=== PATIENT | male | born 1955 | race Caucasian/White ===

== ENCOUNTER 2016-07-26 19:11 | Emergency (ER) | payer MEDICAID ==
[2016-07-26] MEDS ORDERED: LORazepam 0.5 MG Tab PO ONE (19:29)
--- NOTE | 2016-07-26 19:42 | EDM.PDOC ---
ED HPI NEURO - General Chief Complaint: Behavioral/Psych Stated Complaint: CHEST PAIN Time Seen by Provider: 07/26/16 19:34 Source: Reports: Patient, Family History Limitations: Reports: No limitations - History of Present Illness INITIAL COMMENTS - FREE TEXT/NARRATIVE: pt developed tightness in his chest. He was also very emotional and upset regarding his up coming work schedule for the summer. 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 Timing/Duration: Reports: Hour(s):, Getting worse Quality (Neuro Complaint): Reports: tingling, other (pt is quite emotional. ) Severity: moderate Associated symptoms: Reports: chest pain, other (pt is crying and feels like huis chest is tight. He did take 4 baby asas at home. He has had a previous stent. ) - Related Data Allergies/ADRs: Allergies Allergy/AdvReac Type Severity Reaction Status Date / Time bee pollen Allergy Unknown Cannot Verified 07/26/16 19:15 Remember morphine Allergy Unknown Cannot Verified 07/26/16 19:15 Remember oxycodone Allergy Unknown Cannot Verified 07/26/16 19:15 Remember codeine AdvReac Unknown Verified 07/26/16 19:15 Home Meds: Home Meds Fenofibrate 160 mg PO DAILY 08/08/13 [History] Metoprolol Tartrate 25 mg PO BID 08/08/13 [History] Aspirin [Low Dose Aspirin EC] 81 mg PO DAILY 06/18/15 [History] LORazepam 0.5 mg PO Q6HR PRN 06/18/15 [History] [place]-3/DHA/Epa/Fish Oil [Fish Oil 1,000 mg Softgel] 360 mg PO BID 06/18/15 [ History] Multivitamin [Multiple Vitamins] 1 tab PO DAILY 06/17/16 [History] Naproxen Sodium [Aleve] 440 mg PO BID PRN 06/17/16 [History] amLODIPine [Norvasc] 5 mg PO DAILY 06/17/16 [History] Aspirin [Ecotrin] 325 mg PO BID #60 tab.ec 06/23/16 [Rx] Ondansetron [Zofran ODT] 4 mg PO Q6H PRN #12 tab.dis 06/23/16 [Rx] traMADol [Ultram] 100 mg PO Q6H PRN #120 tablet 06/23/16 [Rx] Past Medical History HEENT History: Reports: Cataract Cardiovascular History: Reports: High cholesterol, Hypertension, [place], SOB on exertion, Stents Gastrointestinal History: Reports: GERD, Hiatal hernia Musculoskeletal History: Reports: Arthritis Endocrine/Metabolic History: Reports: Obesity/BMI 30+ - Past Surgical History HEENT Surgical History: Reports: Cataract surgery Cardiovascular Surgical History: Reports: Coronary artery stent Endocrine Surgical History: Reports: None Musculoskeletal Surgical History: Reports: Arthroscopic knee, Shoulder surgery, Other (see below) Other Musculoskeletal Surgeries/Procedures:: left ankle Social & Family History - Family History Cardiac: Reports: Bypass, Heart failure Endocrine/Metabolic: Reports: IDDM Oncologic: Reports: Bladder, Colon, Lung, Prostate, Other (see below) Other Oncologic Family History: throat cancer - Tobacco Use Smoking Status *Q: Current Every Day Smoker Years of Tobacco use: 50 Packs/Tins Daily: 1 Used Tobacco, but Quit: No Second Hand Smoke Exposure: Yes - Caffeine Use Caffeine Use: Reports: Coffee - Alcohol Use Days Per Week of Alcohol Use: 0 - Recreational Drug Use Recreational Drug Use: No ED ROS GENERAL - Review of Systems Review Of Systems: See Below Constitutional: Reports: no symptoms HEENT: Reports: No symptoms Respiratory: Reports: no symptoms Cardiovascular: Reports: Other ( chest tight and he feels tingly. He is upset about not working. He had a total knee done 5 weeks ago and is in PT. ) Endocrine: Reports: no symptoms GI/Abdominal: Reports: No symptoms : Reports: no symptoms Musculoskeletal: Reports: no symptoms Skin: Reports: no symptoms Neurological: Reports: no symptoms Psychiatric: Reports: Anxiety, Other (crying) ED EXAM, NEURO - Physical Exam Exam: See Below Text/Narrative:: pt arrived with some chest pressure and feeling very anxious. 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 He was obviously tearful. Exam Limited By: No limitations General Appearance: alert, anxious Ears: normal TMs Nose: normal inspection Throat/Mouth: Normal inspection Neck: normal inspection Respiratory/Chest: no respiratory distress Cardiovascular: regular rate, rhythm GI/Abdominal: soft, non tender (Male) Exam: Deferred Rectal (Males) Exam: Deferred Neurological: alert, oriented x 3 Back Exam: normal inspection Extremities: normal inspection Psychiatric: anxious, tearful (pt was obviouly tense and upset. ), other Course - Vital Signs Last Recorded V/S: Last Vital Signs Temp 36.6 C 07/26/16 19:46 Pulse 85 07/26/16 19:46 Resp 24 H 07/26/16 19:46 BP 159/90 H 07/26/16 19:46 Pulse Ox 98 07/26/16 19:46 - Orders/Labs/Meds Orders: Active Orders 24 hr Category Date Time Status EKG Documentation Completion [RC] ASDIRECTED Care 07/26/16 19:33 Active EKG 12 Lead [EK] Routine Ther 07/26/16 19:33 Ordered Labs: Laboratory Tests 07/26/16 07/26/16 07/26/16 Range/Units 19:48 19:48 19:48 WBC 5.6 (4.5-11.0) K/uL RBC 4.37 (4.30-5.90) M/uL Hgb 13.1 (12.0-15.0) g/dL Hct 38.9 L (40.0-54.0) % MCV 89 (80-98) fL MCH 30 (27-31) pg MCHC 34 (32-36) % Plt Count 403 H (150-400) K/uL Neut % (Auto) 51 (36-66) % Lymph % (Auto) 38 (24-44) % [place] % (Auto) 9 H (2-6) % Eos % (Auto) 2 (2-4) % Baso % (Auto) 1 (0-1) % Sodium 146 (140-148) mmol/L Potassium 3.4 L (3.6-5.2) mmol/L Chloride 107 (100-108) mmol/L Carbon Dioxide 26 (21-32) mmol/L Anion Gap 16.4 H (5.0-14.0) mmol/L BUN 20 H (7-18) mg/dL Creatinine 1.3 (0.8-1.3) mg/dL Est Cr Clr Drug Dosing 57.20 mL/min Estimated GFR (MDRD) 57 L (>60) Glucose 118 H (74-106) mg/dL Calcium 8.6 (8.5-10.1) mg/dL Total Bilirubin 0.2 (0.2-1.0) mg/dL AST 19 (15-37) U/L ALT 20 (12-78) U/L Alkaline Phosphatase 34 L (46-116) U/L Creatine Kinase 66 (39-308) U/L Troponin I < 0.017 (0.000-0.056) ng/mL Total Protein 7.2 (6.4-8.2) g/dL Albumin 4.2 (3.4-5.0) g/dL Globulin 3.0 (2.3-3.5) g/dL Albumin/Globulin Ratio 1.4 (1.2-2.2) Meds: Medications Discontinued Medications Generic Name Dose Route Start Last Admin Trade Name Freq PRN Reason Stop Dose Admin Lorazepam 0.5 mg 07/26/16 19:29 07/26/16 19:34 Ativan PO 07/26/16 19:30 0.5 mg ONETIME ONE Administration - Re-Assessments/Exams Free Text/Narrative Re-Assessment/Exam: 07/26/16 20:54 pt was given ativan and felt much better. His cardiac enzymes were normal. His creatnine is slightly borderline. His EkG did not show acute changes. Departure - Departure Time of Disposition: 20:55 Disposition: Home, Self-Care 01 Condition: fair Clinical Impression: Anxiety Forms: ED Department Discharge Care Plan Goals: ativan .5 q8h prn for anxiety, use only as needed. rtc if further chest pain. cont other meds. - My Orders Last 24 Hours: My Active Orders 07/26/16 19:33 EKG Documentation Completion [RC] ASDIRECTED EKG 12 Lead [EK] Routine - Assessment/Plan Last 24 Hours: My Active Orders 07/26/16 19:33 EKG Documentation Completion [RC] ASDIRECTED EKG 12 Lead [EK] Routine
[2016-07-26 21:18] VITALS: BP 147/68
== END 2016-07-26 21:11 | disposition home or self-care (01) ==
LOC: JP.ED 19:11
DX: F41.9 Anxiety disorder, unspecified (principal); I25.2 Old myocardial infarction; I10 Essential (primary) hypertension; E78.00 Pure hypercholesterolemia, unspecified; K21.9 Gastro-esophageal reflux disease without esophagitis; F17.210 Nicotine dependence, cigarettes, uncomplicated; E66.9 Obesity, unspecified; Z68.31 Body mass index [BMI] 31.0-31.9, adult; Z98.49 Cataract extraction status, unspecified eye; Z95.5 Presence of coronary angioplasty implant and graft; Z98.890 Other specified postprocedural states; Z79.82 Long term (current) use of aspirin; Z79.899 Other long term (current) drug therapy; Z88.5 Allergy status to narcotic agent; Z91.030 Bee allergy status
CPT/HCPCS: 36415; 80053; 82550; 84484; 85025; 93005; 99285; A9270

== ENCOUNTER 2018-10-13 17:25 | Emergency (ER) | payer MEDICAID ==
[2018-10-13] MEDS ORDERED: Tetracaine HCl/PF 0.5% 4 ML Bottle EYELF ONE (20:38)
[2018-10-13 20:40] VITALS: BP 158/78
--- NOTE | 2018-10-13 20:47 | EDM.PDOC ---
ED HPI GENERAL MEDICAL PROBLEM - General Chief Complaint: Eye Problems Stated Complaint: HAS SOMETHING IN LEFT EYE WHILE MOWING Time Seen by Provider: 10/13/18 20:35 Source of Information: Reports: Patient History Limitations: Reports: No Limitations - History of Present Illness INITIAL COMMENTS - FREE TEXT/NARRATIVE: 63-year-old male complains of a foreign body in his left eye that occurred after he was mowing his lawn today. His vision is unaffected and he has not had any discharge. Has some pain with movement and blinking of the eye with painful/ 10. He does not work contact lenses or glasses. 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 Left Eye Pain Score (Numeric/FACES): 8 - Related Data Allergies Allergy/AdvReac Type Severity Reaction Status Date / Time bee pollen Allergy Unknown Cannot Verified 10/13/18 20:30 Remember morphine Allergy Unknown Cannot Verified 10/13/18 20:30 Remember oxycodone Allergy Unknown Cannot Verified 10/13/18 20:30 Remember codeine AdvReac Unknown Verified 10/13/18 20:30 Home Meds: Home Meds Fenofibrate 160 mg PO DAILY 08/08/13 [History] Metoprolol Tartrate 25 mg PO BID 08/08/13 [History] Aspirin [Low Dose Aspirin EC] 81 mg PO DAILY 06/18/15 [History] LORazepam 0.5 mg PO Q6HR PRN 06/18/15 [History] [place]-3/DHA/Epa/Fish Oil [Fish Oil 1,000 mg Softgel] 360 mg PO BID 06/18/15 [ History] Multivitamin [Multiple Vitamins] 1 tab PO DAILY 06/17/16 [History] Naproxen Sodium [Aleve] 440 mg PO BID PRN 06/17/16 [History] amLODIPine [Norvasc] 5 mg PO DAILY 06/17/16 [History] Past Medical History HEENT History: Reports: Cataract Cardiovascular History: Reports: High Cholesterol, Hypertension, [place], SOB on Exertion, Stents Gastrointestinal History: Reports: GERD, Hiatal Hernia Musculoskeletal History: Reports: Other (See Below) Other Musculoskeletal History: left ankle pain Endocrine/Metabolic History: Reports: Obesity/BMI 30+ - Infectious Disease History Infectious Disease History: Reports: Chicken Pox - Past Surgical History HEENT Surgical History: Reports: Cataract Surgery Cardiovascular Surgical History: Reports: Coronary Artery Stent GI Surgical History: Reports: Hernia, Inguinal Endocrine Surgical History: Reports: None Musculoskeletal Surgical History: Reports: Arthroscopic Knee, Shoulder Surgery, Other (See Below) Social & Family History - Family History Cardiac: Reports: Bypass, Heart Failure Endocrine/Metabolic: Reports: IDDM Oncologic: Reports: Bladder, Colon, Lung, Prostate, Other (See Below) Other Oncologic Family History: throat cancer - Tobacco Use Smoking Status *Q: Unknown Ever Smoked - Caffeine Use Caffeine Use: Reports: Coffee - Recreational Drug Use Recreational Drug Use: No ED ROS GENERAL - Review of Systems Review Of Systems: See Below Constitutional: Reports: No Symptoms HEENT: Reports: No Symptoms Respiratory: Reports: No Symptoms Cardiovascular: Reports: No Symptoms ED EXAM GENERAL W FULL EYE - Physical Exam Exam: See Below Exam Limited By: No Limitations General Appearance: Alert, No Apparent Distress Eyelids: Bilateral: Normal Appearance, Edema Cornea Exam: Left: Foreign Body Pupillary Size: Bilateral: 3 mm Pupillary Reaction: Bilateral: Brisk Anterior Chamber: Bilateral: Normal Appearance Nose: Normal Inspection Throat/Mouth: Normal Inspection Course - Vital Signs Last Recorded V/S: Last Vital Signs Temp 36.4 C 10/13/18 20:39 Pulse 55 L 10/13/18 20:39 Resp 12 10/13/18 20:39 BP 158/78 H 10/13/18 20:39 Pulse Ox 96 10/13/18 20:39 - Orders/Labs/Meds Meds: Medications Discontinued Medications Generic Name Dose Route Start Last Admin Trade Name Freq PRN Reason Stop Dose Admin Tetracaine HCl 0.2 ml 10/13/18 20:38 10/13/18 20:42 Tetracaine 0.5% Steri-Unit Betty EYELF 10/13/18 20:39 0.2 drop ASDIRECTED ONE Administration Departure - Departure Time of Disposition: 20:55 Disposition: Home, Self-Care 01 Condition: Good Clinical Impression: Acute foreign body of cornea - Discharge Information *PRESCRIPTION DRUG MONITORING PROGRAM REVIEWED*: No *COPY OF PRESCRIPTION DRUG MONITORING REPORT IN PATIENT YFN: No Instructions: Eye Foreign Body, [id number] Referrals: PCP,None [Primary Care Provider] - Forms: ED Department Discharge Additional Instructions: [id number] analgesics and lubrication drops as needed for pain. Care Plan Goals: Follow-up if there is development of discharge or worsening of symptoms after 2 days. - Problem List & Annotations (1) Acute foreign body of cornea SNOMED Code(s): 00055249 Code(s): T15.00XA - FOREIGN BODY IN CORNEA, UNSPECIFIED EYE, INITIAL ENCOUNTER Status: Acute
== END 2018-10-13 20:59 | disposition home or self-care (01) ==
LOC: JP.ED 17:25
DX: T15.02XA Foreign body in cornea, left eye, initial encounter (principal); E78.00 Pure hypercholesterolemia, unspecified; I10 Essential (primary) hypertension; I25.2 Old myocardial infarction; Z79.82 Long term (current) use of aspirin
CPT/HCPCS: 99283

== ENCOUNTER 2019-01-09 10:45 | Emergency (ER) | payer MEDICAID ==
[2019-01-09 11:11] VITALS: BP 177/98; PULSE 76
--- NOTE | 2019-01-09 11:32 | EDM.PDOC ---
ED HPI GENERAL MEDICAL PROBLEM - General Chief Complaint: Bite:Animal, Insect Stated Complaint: BEE STINGS Time Seen by Provider: 01/09/19 11:10 Source of Information: Reports: Patient History Limitations: Reports: No Limitations - History of Present Illness INITIAL COMMENTS - FREE TEXT/NARRATIVE: 63-year-old male got stung several times by bees within the last hour, his gave him Benadryl and he came in for evaluation because he had a significant systemic reaction 30 years ago. He has some itching of the extremities where he was stung but no other symptoms. No shortness of breath, no oral edema or swelling. Onset: Sudden Duration: Hour(s): (Within the last hour) Associated Symptoms: Denies: Confusion, Chest Pain, Cough, Diaphoresis, Loss of Appetite, Malaise, Nausea/Vomiting, Shortness of Breath, Weakness - Related Data Allergies Allergy/AdvReac Type Severity Reaction Status Date / Time bee pollen Allergy Unknown Cannot Verified 10/13/18 20:30 Remember morphine Allergy Unknown Cannot Verified 10/13/18 20:30 Remember oxycodone Allergy Unknown Cannot Verified 10/13/18 20:30 Remember codeine AdvReac Unknown Verified 10/13/18 20:30 Home Meds: Home Meds Fenofibrate 160 mg PO DAILY 08/08/13 [History] Metoprolol Tartrate 25 mg PO BID 08/08/13 [History] Aspirin [Low Dose Aspirin EC] 81 mg PO DAILY 06/18/15 [History] LORazepam 0.5 mg PO Q6HR PRN 06/18/15 [History] [place]-3/DHA/Epa/Fish Oil [Fish Oil 1,000 mg Softgel] 360 mg PO BID 06/18/15 [ History] Multivitamin [Multiple Vitamins] 1 tab PO DAILY 06/17/16 [History] Naproxen Sodium [Aleve] 440 mg PO BID PRN 06/17/16 [History] amLODIPine [Norvasc] 5 mg PO DAILY 06/17/16 [History] Past Medical History HEENT History: Reports: Cataract Cardiovascular History: Reports: High Cholesterol, Hypertension, [place], SOB on Exertion, Stents Gastrointestinal History: Reports: GERD, Hiatal Hernia Musculoskeletal History: Reports: Other (See Below) Other Musculoskeletal History: left ankle pain Endocrine/Metabolic History: Reports: Obesity/BMI 30+ - Infectious Disease History Infectious Disease History: Reports: Chicken Pox - Past Surgical History HEENT Surgical History: Reports: Cataract Surgery Cardiovascular Surgical History: Reports: Coronary Artery Stent GI Surgical History: Reports: Hernia, Inguinal Endocrine Surgical History: Reports: None Musculoskeletal Surgical History: Reports: Arthroscopic Knee, Shoulder Surgery, Other (See Below) Social & Family History - Family History Cardiac: Reports: Bypass, Heart Failure Endocrine/Metabolic: Reports: IDDM Oncologic: Reports: Bladder, Colon, Lung, Prostate, Other (See Below) Other Oncologic Family History: throat cancer - Tobacco Use Smoking Status *Q: Current Every Day Smoker Years of Tobacco use: 50 Packs/Tins Daily: 1 - Caffeine Use Caffeine Use: Reports: Coffee - Recreational Drug Use Recreational Drug Use: No ED ROS GENERAL - Review of Systems Review Of Systems: See Below Constitutional: Denies: Fever, Chills HEENT: Reports: No Symptoms Respiratory: Denies: Shortness of Breath Cardiovascular: Denies: Chest Pain GI/Abdominal: Denies: Nausea, Vomiting Skin: Reports: Other (Some mild erythema around the sting sites, no systemic rash or hives) Neurological: Reports: No Symptoms ED EXAM, ANIMAL BITE - Physical Exam Exam: See Below Exam Limited By: No Limitations General Appearance: Alert, No Apparent Distress Eye Exam: Bilateral Eye: Normal Inspection Throat/Mouth: Normal Inspection Head: Atraumatic Respiratory/Chest: No Respiratory Distress, Lungs Clear Extremities: Other (Some minimal erythema on the right arm and both lower extremities were he was stung, no significant swelling, bruising or hives, no peripheral edema) Neurological: Alert, Oriented Course - Vital Signs Last Recorded V/S: Last Vital Signs Temp 96.8 F 01/09/19 11:03 Pulse 76 01/09/19 11:03 Resp 19 01/09/19 11:03 BP 177/98 H 01/09/19 11:03 Pulse Ox 94 L 01/09/19 11:03 - Re-Assessments/Exams Free Text/Narrative Re-Assessment/Exam: 01/09/19 11:32 Patient was observed for an additional hour and developed no further symptoms. No further treatment was given. Departure - Departure Time of Disposition: 11:38 Disposition: Home, Self-Care 01 Clinical Impression: Accidental bee sting - Discharge Information Instructions: Bee, Wasp, or Hornet Sting, Adult Referrals: PCP,None [Primary Care Provider] - Forms: ED Department Discharge Care Plan Goals: Continue ice to sting areas, ibuprofen may help and increase activity as tolerated. Return if concerns such as shortness of breath, widespread rash or tongue swelling.
== END 2019-01-09 11:39 | disposition home or self-care (01) ==
LOC: JP.ED 10:45
DX: T63.441A Toxic effect of venom of bees, accidental (unintentional), initial encounter (principal); I10 Essential (primary) hypertension; I25.2 Old myocardial infarction; E66.9 Obesity, unspecified; Z68.33 Body mass index [BMI] 33.0-33.9, adult; F17.210 Nicotine dependence, cigarettes, uncomplicated; E78.00 Pure hypercholesterolemia, unspecified; Z88.5 Allergy status to narcotic agent; Z91.030 Bee allergy status; Z79.82 Long term (current) use of aspirin; Z79.899 Other long term (current) drug therapy
CPT/HCPCS: 99282

== ENCOUNTER 2020-01-07 07:38 | Inpatient (IN) | payer MEDICAID ==
--- NOTE | 2020-01-07 08:02 | EDM.PDOC ---
ED HPI GENERAL MEDICAL PROBLEM - General Chief Complaint: Lower Extremity Injury/Pain Stated Complaint: LEFT KNEE PAIN, FEVER Time Seen by Provider: 01/07/20 08:01 Source of Information: Reports: Patient History Limitations: Reports: No Limitations - History of Present Illness INITIAL COMMENTS - FREE TEXT/NARRATIVE: Sudden onset of left knee pain at 6 AM. He initially was able to bear weight but pain and swelling became gradually worse and he has been unable to bear weight. Denies fevers or chills. Denies tick bites. No rash. No trauma. Significant past history of left knee surgery. Patient states his pain actually is more in his posterior calf and goes behind his knee. He denies any prolonged immobilization but does have a significant history of cancer (prostate). Onset: Sudden Onset Date: 01/06/20 Onset Time: 06:00 Duration: Getting Worse Location: Reports: Lower Extremity, Left Quality: Reports: Sharp, Throbbing Severity: Severe Improves with: Reports: Immobilization, Rest Worsens with: Reports: Movement Associated Symptoms: Reports: No Other Symptoms Treatments FUR SEWER: Reports: Acetaminophen Left Knee Pain Score (Numeric/FACES): 8 - Related Data Allergies Allergy/AdvReac Type Severity Reaction Status Date / Time bee pollen Allergy Unknown Cannot Verified 01/07/20 08:00 Remember morphine Allergy Unknown Cannot Verified 01/07/20 08:00 Remember oxycodone Allergy Unknown Cannot Verified 01/07/20 08:00 Remember codeine AdvReac Unknown Verified 01/07/20 08:00 Home Meds: Home Meds Fenofibrate 160 mg PO DAILY 08/08/13 [History] Aspirin [Low Dose Aspirin EC] 81 mg PO DAILY 06/18/15 [History] LORazepam 0.5 mg PO Q6HR PRN 06/18/15 [History] Multivitamin [Multiple Vitamins] 1 tab PO DAILY 06/17/16 [History] amLODIPine [Norvasc] 5 mg PO DAILY 06/17/16 [History] Acetaminophen/Diphenhydramine [Tylenol Pm Ex-Strength Caplet] 2 each PO Q4HR 01/07/20 [History] Past Medical History HEENT History: Reports: Cataract Cardiovascular History: Reports: High Cholesterol, Hypertension, [place], SOB on Exertion, Stents Gastrointestinal History: Reports: GERD, Hiatal Hernia Genitourinary History: Reports: Other (See Below) (proState cancer, S/P prostatectomy) Musculoskeletal History: Reports: Other (See Below) Other Musculoskeletal History: left ankle pain Endocrine/Metabolic History: Reports: Obesity/BMI 30+ - Infectious Disease History Infectious Disease History: Reports: Chicken Pox - Past Surgical History HEENT Surgical History: Reports: Cataract Surgery Cardiovascular Surgical History: Reports: Coronary Artery Stent GI Surgical History: Reports: Hernia, Inguinal Male Surgical History: Reports: Prostatectomy Endocrine Surgical History: Reports: None Musculoskeletal Surgical History: Reports: Arthroscopic Knee, Shoulder Surgery, Other (See Below) Social & Family History - Family History Cardiac: Reports: Bypass, Heart Failure Endocrine/Metabolic: Reports: IDDM Oncologic: Reports: Bladder, Colon, Lung, Prostate, Other (See Below) Other Oncologic Family History: throat cancer - Caffeine Use Caffeine Use: Reports: Coffee Review of Systems - Review of Systems Review Of Systems: See Below Constitutional: Reports: Fever Eyes: Reports: No Symptoms Ears: Reports: No Symptoms Nose: Reports: No Symptoms. Denies: Congestion, Purulent Discharge Mouth/Throat: Reports: No Symptoms Respiratory: Denies: Shortness of Breath, Wheezing, Cough Cardiovascular: Denies: Chest Pain GI/Abdominal: Denies: Abdominal Pain Musculoskeletal: Reports: Joint Pain Skin: Denies: Rash Neurological: Reports: No Symptoms Psychiatric: Reports: No Symptoms ED EXAM, GENERAL - Physical Exam Exam: See Below Exam Limited By: No Limitations General Appearance: Alert Ears: Normal External Exam Nose: Normal Inspection Throat/Mouth: Normal Inspection Respiratory/Chest: No Respiratory Distress Cardiovascular: Normal Peripheral Pulses, Regular Rate, Rhythm Peripheral Pulses: 1+: Dorsalis Pedis (L), Dorsalis Pedis (R) GI/Abdominal: Non-Tender, No Distention Extremities: No Pedal Edema, Increased Warmth (Left knee does feel warmer than the right and appears to be slightly swollen. There does not appear to be any ballotable fluid. There is a well-healed anterior surgical scar over the front of the knee. Palpation of the calf reveals no cords but there is posterior tenderness. No mass or cord is palpable in the popliteal area.) Neurological: Alert, Oriented, Normal Cognition Psychiatric: Normal Affect, Normal Mood Skin Exam: Warm, Dry. No: Rash Lymphatic: No Adenopathy EKG INTERPRETATION EKG Date: 01/07/20 Time: 09:55 Rhythm: NSR Rate (Beats/Min): 77 P-Wave: Present ST-T: Normal Course - Vital Signs Text/Narrative:: Initial Differential diagnosis includes: osteoarthritis, osteomyelitis, DVT, cellulitis, Lyme disease, sepsis. Patient has multiple laboratory indicators of infection/sepsis including elevated white blood cell count, elevated lactic protein and procalcitonin. Knee aspiration was attempted and did not result in any fluid aspiration. Oral Percocet prior to knee aspiration. Patient refused that medication. He was very anxious prior to the knee aspiration and complained of heartburn. After aspiration was performed twelve-lead EKG was done which showed no evidence of ischemia. Patient's heartburn immediately subsided when procedure was completed. I Strongly suspect a septic joint and will have blood cultures drawn and start IV Rocephin. Dr. oYder has been contacted. @ 10:24 I left a message on hospitalist's phone. 10:30A Dr. Yoder in ED to eval pt. Pt. to be admitted on IV antibiotics. Last Recorded V/S: Last Vital Signs Temp 36.3 C 01/07/20 10:35 Pulse 72 01/07/20 10:35 Resp 16 01/07/20 10:35 BP 133/63 01/07/20 10:35 Pulse Ox 95 01/07/20 10:35 - Orders/Labs/Meds Orders: Active Orders 24 hr Category Date Time Status CULTURE BLOOD [BC] Urgent Lab 01/07/20 08:23 Received CULTURE BLOOD [BC] Urgent Lab 01/07/20 10:03 Received HUMAN GRANULOCYTIC YOHANA-HGE Urgent Lab 01/07/20 08:23 Received LYME, TOTAL AB TEST/REFLEX Urgent Lab 01/07/20 08:23 Received Acetaminophen/oxyCODONE [Percocet 325-5 MG] Med 01/07/20 09:07 Active 1 tab PO ONETIME PRN Sodium Chloride 0.9% [Normal Saline] 1,000 ml Med 01/07/20 10:00 Active IV ASDIRECTED Blood Culture x2 Reflex Set [OM.PC] Urgent Oth 01/07/20 09:53 Ordered Medication Orders Sodium Chloride (Normal Saline) 1,000 mls @ 500 mls/hr IV ASDIRECTED HANNAH Last Admin: 01/07/20 10:31 Dose: 500 mls/hr Documented by: PREILOR Oxycodone/Acetaminophen (Percocet 325-5 Mg) 1 tab PO ONETIME PRN PRN Reason: Pain (moderate 4-6) Labs: Laboratory Tests 01/07/20 01/07/20 01/07/20 Range/Units 08:23 08:23 08:23 WBC 14.7 H (4.5-11.0) K/uL RBC 4.71 (4.30-5.90) M/uL Hgb 13.8 (12.0-15.0) g/dL Hct 42.7 (40.0-54.0) % MCV 91 (80-98) fL MCH 29 (27-31) pg MCHC 32 (32-36) % Plt Count 333 (150-400) K/uL PT (9.5-12.0) sec INR (0.80-1.20) D-Dimer, Quantitative (0.0-400.0) ng/mL Sodium 138 L (140-148) mmol/L Potassium 3.6 (3.6-5.2) mmol/L Chloride 104 (100-108) mmol/L Carbon Dioxide 26 (21-32) mmol/L Anion Gap 11.6 (5.0-14.0) mmol/L BUN 17 (7-18) mg/dL Creatinine 1.6 H (0.8-1.3) mg/dL Est Cr Clr Drug Dosing 46.31 mL/min Estimated GFR (MDRD) 44 L (>60) Glucose 120 H (74-106) mg/dL Lactic Acid 1.6 (0.4-2.0) mmol/L Calcium 8.9 (8.5-10.1) mg/dL Total Bilirubin 0.3 (0.2-1.0) mg/dL AST 22 (15-37) U/L ALT 24 (12-78) U/L Alkaline Phosphatase 44 L (46-116) U/L C-Reactive Protein (0.0-0.3) mg/dL Total Protein 7.0 (6.4-8.2) g/dL Albumin 3.6 (3.4-5.0) g/dL Globulin 3.4 (2.3-3.5) g/dL Albumin/Globulin Ratio 1.1 L (1.2-2.2) PSA Screen (0.0-4.0) ug/L Procalcitonin ng/mL Urine Color (YELLOW) Urine Appearance (CLEAR) Urine pH (5.0-8.0) Ur Specific [place] (1.008-1.030) Urine Protein (NEGATIVE) mg/dL Urine Glucose (UA) (NEGATIVE) mg/dL Urine Ketones (NEGATIVE) mg/dL Urine Occult Blood (NEGATIVE) Urine Nitrite (NEGATIVE) Urine Bilirubin (NEGATIVE) Urine Urobilinogen (0.2-1.0) EU/dL Ur Leukocyte Esterase (NEGATIVE) Urine RBC (0-5) Urine WBC (0-5) Ur Epithelial Cells Amorphous Sediment Urine Bacteria Urine Mucus 01/07/20 01/07/20 01/07/20 Range/Units 08:23 08:23 08:23 WBC (4.5-11.0) K/uL RBC (4.30-5.90) M/uL Hgb (12.0-15.0) g/dL Hct (40.0-54.0) % MCV (80-98) fL MCH (27-31) pg MCHC (32-36) % Plt Count (150-400) K/uL PT 12.0 (9.5-12.0) sec INR 1.10 (0.80-1.20) D-Dimer, Quantitative 453 H (0.0-400.0) ng/mL Sodium (140-148) mmol/L Potassium (3.6-5.2) mmol/L Chloride (100-108) mmol/L Carbon Dioxide (21-32) mmol/L Anion Gap (5.0-14.0) mmol/L BUN (7-18) mg/dL Creatinine (0.8-1.3) mg/dL Est Cr Clr Drug Dosing mL/min Estimated GFR (MDRD) (>60) Glucose (74-106) mg/dL Lactic Acid (0.4-2.0) mmol/L Calcium (8.5-10.1) mg/dL Total Bilirubin (0.2-1.0) mg/dL AST (15-37) U/L ALT (12-78) U/L Alkaline Phosphatase (46-116) U/L C-Reactive Protein 24.10 H (0.0-0.3) mg/dL Total Protein (6.4-8.2) g/dL Albumin (3.4-5.0) g/dL Globulin (2.3-3.5) g/dL Albumin/Globulin Ratio (1.2-2.2) PSA Screen < 0.1 (0.0-4.0) ug/L Procalcitonin ng/mL Urine Color (YELLOW) Urine Appearance (CLEAR) Urine pH (5.0-8.0) Ur Specific [place] (1.008-1.030) Urine Protein (NEGATIVE) mg/dL Urine Glucose (UA) (NEGATIVE) mg/dL Urine Ketones (NEGATIVE) mg/dL Urine Occult Blood (NEGATIVE) Urine Nitrite (NEGATIVE) Urine Bilirubin (NEGATIVE) Urine Urobilinogen (0.2-1.0) EU/dL Ur Leukocyte Esterase (NEGATIVE) Urine RBC (0-5) Urine WBC (0-5) Ur Epithelial Cells Amorphous Sediment Urine Bacteria Urine Mucus 01/07/20 01/07/20 Range/Units 08:23 10:00 WBC (4.5-11.0) K/uL RBC (4.30-5.90) M/uL Hgb (12.0-15.0) g/dL Hct (40.0-54.0) % MCV (80-98) fL MCH (27-31) pg MCHC (32-36) % Plt Count (150-400) K/uL PT (9.5-12.0) sec INR (0.80-1.20) D-Dimer, Quantitative (0.0-400.0) ng/mL Sodium (140-148) mmol/L Potassium (3.6-5.2) mmol/L Chloride (100-108) mmol/L Carbon Dioxide (21-32) mmol/L Anion Gap (5.0-14.0) mmol/L BUN (7-18) mg/dL Creatinine (0.8-1.3) mg/dL Est Cr Clr Drug Dosing mL/min Estimated GFR (MDRD) (>60) Glucose (74-106) mg/dL Lactic Acid (0.4-2.0) mmol/L Calcium (8.5-10.1) mg/dL Total Bilirubin (0.2-1.0) mg/dL AST (15-37) U/L ALT (12-78) U/L Alkaline Phosphatase (46-116) U/L C-Reactive Protein (0.0-0.3) mg/dL Total Protein (6.4-8.2) g/dL Albumin (3.4-5.0) g/dL Globulin (2.3-3.5) g/dL Albumin/Globulin Ratio (1.2-2.2) PSA Screen (0.0-4.0) ug/L Procalcitonin 9.71 H* ng/mL Urine Color Yellow (YELLOW) Urine Appearance Slightly cloudy A (CLEAR) Urine pH 6.5 (5.0-8.0) Ur Specific [place] 1.025 (1.008-1.030) Urine Protein Trace H (NEGATIVE) mg/dL Urine Glucose (UA) Negative (NEGATIVE) mg/dL Urine Ketones Negative (NEGATIVE) mg/dL Urine Occult Blood Negative (NEGATIVE) Urine Nitrite Negative (NEGATIVE) Urine Bilirubin Negative (NEGATIVE) Urine Urobilinogen 0.2 (0.2-1.0) EU/dL Ur Leukocyte Esterase Negative (NEGATIVE) Urine RBC 0-5 (0-5) Urine WBC 5-10 H (0-5) Ur Epithelial Cells Rare Amorphous Sediment Few Urine Bacteria Few Urine Mucus Moderate Meds: Medications Generic Name Dose Route Start Last Admin Trade Name Freq PRN Reason Stop Dose Admin Sodium Chloride 1,000 mls @ 500 mls/hr 01/07/20 10:00 01/07/20 10:31 Normal Saline IV 500 mls/hr ASDIRECTED HANNAH Administration Oxycodone/Acetaminophen 1 tab 01/07/20 09:07 Percocet 325-5 Mg PO ONETIME PRN Pain (moderate 4-6) Discontinued Medications Generic Name Dose Route Start Last Admin Trade Name Freq PRN Reason Stop Dose Admin Ceftriaxone Sodium 1 gm/ 50 mls @ 100 mls/hr 01/07/20 09:54 01/07/20 10:33 Sodium Chloride IV 01/07/20 10:23 100 mls/hr ONETIME ONE Administration Ibuprofen 600 mg 01/07/20 08:14 01/07/20 08:21 Motrin PO 01/07/20 08:15 600 mg ONETIME ONE Administration Lidocaine HCl 5 ml 01/07/20 09:08 01/07/20 09:20 Xylocaine-Mpf 1% INJECT 01/07/20 09:09 5 ml ONETIME ONE Administration Departure - Departure Time of Disposition: 10:44 Disposition: Admitted As Inpatient 68 Condition: Fair Clinical Impression: Status post total left knee replacement Septic arthritis of knee, left Qualifiers: Septic arthritis organism: due to unspecified organism Qualified Code(s): M00.9 - Pyogenic arthritis, unspecified - Discharge Information Referrals: PCP,None [Primary Care Provider] - Forms: ED Department Discharge Sepsis Event Note (ED) - Focused Exam Vital Signs: Vital Signs Temp Pulse Resp BP Pulse Ox 01/07/20 10:35 36.3 C 72 16 133/63 95 01/07/20 08:03 36.9 C 76 16 151/76 H 96 01/07/20 07:55 36.9 C 76 16 151/76 H 96 - My Orders Last 24 Hours: My Active Orders 01/07/20 08:23 CULTURE BLOOD [BC] Urgent HUMAN GRANULOCYTIC YOHANA-HGE Urgent LYME, TOTAL AB TEST/REFLEX Urgent 01/07/20 09:07 Acetaminophen/oxyCODONE [Percocet 325-5 MG] 1 tab PO ONETIME PRN 01/07/20 09:53 Blood Culture x2 Reflex Set [OM.PC] Urgent 01/07/20 10:00 Sodium Chloride 0.9% [Normal Saline] 1,000 ml IV ASDIRECTED 01/07/20 10:03 CULTURE BLOOD [BC] Urgent - Assessment/Plan Last 24 Hours: My Active Orders 01/07/20 08:23 CULTURE BLOOD [BC] Urgent HUMAN GRANULOCYTIC YOHANA-HGE Urgent LYME, TOTAL AB TEST/REFLEX Urgent 01/07/20 09:07 Acetaminophen/oxyCODONE [Percocet 325-5 MG] 1 tab PO ONETIME PRN 01/07/20 09:53 Blood Culture x2 Reflex Set [OM.PC] Urgent 01/07/20 10:00 Sodium Chloride 0.9% [Normal Saline] 1,000 ml IV ASDIRECTED 01/07/20 10:03 CULTURE BLOOD [BC] Urgent
[2020-01-07] MEDS ORDERED: Ibuprofen 600 MG Tab PO ONE (08:14)
[2020-01-07] MEDS ORDERED: Acetaminophen/oxyCODONE 325-5 MG Tab PO PRN (09:07)
--- NOTE | 2020-01-07 09:47 | CR ---
Knee 1V or 2V Lt CLINICAL HISTORY: Pain and swelling FINDINGS: Patient has had a total knee arthroplasty. There is also been lateral tibial fixation with khadijah. There is moderate deformity of the proximal third of the tibia. This is seen on the 2017 study. Impression: 3 component total knee arthroplasty and lateral tibial khadijah appear well seated Moderate persistent deformity of the proximal third of the tibia
[2020-01-07] MEDS ORDERED: cefTRIAXone 1 GM in Sodium Chloride 0.9% 50 ML IV ONE (09:54)
[2020-01-07] MEDS ORDERED: Sodium Chloride 0.9% 1,000 ML IV SCH ×2 (10:00→11:45)
--- NOTE | 2020-01-07 11:26 | PCM.HP.2 ---
H&P History of Present Illness - General Date of Service: 01/07/20 Admit Problem/Dx: Admission Diagnosis/Problem Admission Diagnosis/Problem Septic arthritis Source of Information: Patient, Family, Provider History Limitations: Reports: No Limitations - History of Present Illness Initial Comments - Free Text/Narative: CC: My knee hurts so bad I can't stand on it HPI: George presents to the emergency room today with severe left knee pain. He felt well yesterday morning when he woke up but shortly thereafter developed shaking chills and was extremely cold. Despite a variety of blankets and heater he was not able to warm up. Eventually he broke out into a sweat and developed a fever. He developed some mild back pain as the day went on. Last night towards bedtime he started to develop some mild left knee pain but did not notice any swelling. He woke up at 3 AM this morning with severe left knee pain. This was a sharp pain that radiated into the back of his lower leg. Pain was better when he laid still but even more intense when he tried to stand up. He was able to get around with some crutches and eventually sought treatment in the emergency room. He has continued to have episodes of diaphoresis as well as shaking chills. No complaints of nausea, abdominal pain, cough or shortness of breath. No recent injuries to his back or his knee. Nothing out of the ordinary in the last couple of weeks. No sick contacts or travel. Work-up in the emergency room was concerning for a septic left knee. He has leukocytosis as well as significant elevation of CRP and procalcitonin. X-ray did not show any malalignment of hardware or significant abnormality. He has received ceftriaxone. He will be admitted for management of a septic left knee. Left Knee Pain Score (Numeric/FACES): 8 - Related Data Allergies/Adverse Reactions: Allergies Allergy/AdvReac Type Severity Reaction Status Date / Time bee pollen Allergy Unknown Cannot Verified 01/07/20 08:00 Remember morphine Allergy Unknown Cannot Verified 01/07/20 08:00 Remember oxycodone Allergy Unknown Cannot Verified 01/07/20 08:00 Remember codeine AdvReac Unknown Verified 01/07/20 08:00 Home Medications: Home Meds Fenofibrate 160 mg PO DAILY 08/08/13 [History] Aspirin [Low Dose Aspirin EC] 81 mg PO DAILY 06/18/15 [History] LORazepam 0.5 mg PO Q6HR PRN 06/18/15 [History] Multivitamin [Multiple Vitamins] 1 tab PO DAILY 06/17/16 [History] amLODIPine [Norvasc] 5 mg PO DAILY 06/17/16 [History] Acetaminophen/Diphenhydramine [Tylenol Pm Ex-Strength Caplet] 2 each PO Q4HR 01/07/20 [History] Past Medical History HEENT History: Reports: Cataract Cardiovascular History: Reports: High Cholesterol, Hypertension, SC, SOB on Exertion, Stents Gastrointestinal History: Reports: GERD, Hiatal Hernia Genitourinary History: Reports: Other (See Below) (proState cancer, S/P prostatectomy) Musculoskeletal History: Reports: Other (See Below) Other Musculoskeletal History: left ankle pain Endocrine/Metabolic History: Reports: Obesity/BMI 30+ - Infectious Disease History Infectious Disease History: Reports: Chicken Pox - Past Surgical History HEENT Surgical History: Reports: Cataract Surgery Cardiovascular Surgical History: Reports: Coronary Artery Stent GI Surgical History: Reports: Hernia, Inguinal Male Surgical History: Reports: Prostatectomy Endocrine Surgical History: Reports: None Musculoskeletal Surgical History: Reports: Arthroscopic Knee, Shoulder Surgery, Other (See Below) Social & Family History - Family History Cardiac: Reports: Bypass, Heart Failure Endocrine/Metabolic: Reports: IDDM Oncologic: Reports: Bladder, Colon, Lung, Prostate, Other (See Below) Other Oncologic Family History: throat cancer - Tobacco Use Smoking Status *Q: Current Every Day Smoker Years of Tobacco use: 55 Packs/Tins Daily: 1 - Caffeine Use Caffeine Use: Reports: Coffee - Recreational Drug Use Recreational Drug Use: No H&P Review of Systems - Review of Systems: Review Of Systems: See Below Free Text/Narrative: A complete 12 point review of systems was obtained. Pertinent positives and negatives are noted in the history of present illness. All other systems were reviewed and were negative except as noted. Exam - Exam Exam: See Below - Vital Signs Vital Signs: Last Vital Signs Temp 36.3 C 01/07/20 10:35 Pulse 72 01/07/20 10:35 Resp 16 01/07/20 10:35 BP 133/63 01/07/20 10:35 Pulse Ox 95 01/07/20 10:35 Weight: 99.79 kg - Exam Quality Assessment: No: Supplemental Oxygen General: Alert, Oriented, Cooperative. No: Mild Distress HEENT: Conjunctiva Clear, Mucosa Moist & Sanctuary. No: Scleral Icterus Neck: Supple, Trachea Midline Lungs: Clear to Auscultation, Normal Respiratory Effort Cardiovascular: Regular Rate, Regular Rhythm. No: Systolic Murmur GI/Abdominal Exam: Normal Bowel Sounds, Soft, Non-Tender, No Distention Back Exam: Normal Inspection, Full Range of Motion Extremities: No Pedal Edema, Joint Swelling (left knee), Increased Warmth (left knee) Peripheral Pulses: 2+: Dorsalis Pedis (L), Dorsalis Pedis (R) Skin: Warm, Dry, Incision (healed incision left knee ) Neuro Extensive - Mental Status: Alert, Oriented x3, Nl Response to Commands Neuro Extensive - Motor, Sensory, Reflexes: No: Dysarthria, Abnormal Motor, Tremor Psychiatric: Alert, Normal Affect - Patient Data Lab Results Last 24 hrs: Laboratory Results - last 24 hr 01/07/20 01/07/20 01/07/20 Range/Units 08:23 08:23 08:23 WBC 14.7 H (4.5-11.0) K/uL RBC 4.71 (4.30-5.90) M/uL Hgb 13.8 (12.0-15.0) g/dL Hct 42.7 (40.0-54.0) % MCV 91 (80-98) fL MCH 29 (27-31) pg MCHC 32 (32-36) % Plt Count 333 (150-400) K/uL PT (9.5-12.0) sec INR (0.80-1.20) D-Dimer, Quantitative (0.0-400.0) ng/mL Sodium 138 L (140-148) mmol/L Potassium 3.6 (3.6-5.2) mmol/L Chloride 104 (100-108) mmol/L Carbon Dioxide 26 (21-32) mmol/L Anion Gap 11.6 (5.0-14.0) mmol/L BUN 17 (7-18) mg/dL Creatinine 1.6 H (0.8-1.3) mg/dL Est Cr Clr Drug Dosing 46.31 mL/min Estimated GFR (MDRD) 44 L (>60) Glucose 120 H (74-106) mg/dL Lactic Acid 1.6 (0.4-2.0) mmol/L Calcium 8.9 (8.5-10.1) mg/dL Total Bilirubin 0.3 (0.2-1.0) mg/dL AST 22 (15-37) U/L ALT 24 (12-78) U/L Alkaline Phosphatase 44 L (46-116) U/L C-Reactive Protein (0.0-0.3) mg/dL Total Protein 7.0 (6.4-8.2) g/dL Albumin 3.6 (3.4-5.0) g/dL Globulin 3.4 (2.3-3.5) g/dL Albumin/Globulin Ratio 1.1 L (1.2-2.2) PSA Screen (0.0-4.0) ug/L Procalcitonin ng/mL Urine Color (YELLOW) Urine Appearance (CLEAR) Urine pH (5.0-8.0) Ur Specific [place] (1.008-1.030) Urine Protein (NEGATIVE) mg/dL Urine Glucose (UA) (NEGATIVE) mg/dL Urine Ketones (NEGATIVE) mg/dL Urine Occult Blood (NEGATIVE) Urine Nitrite (NEGATIVE) Urine Bilirubin (NEGATIVE) Urine Urobilinogen (0.2-1.0) EU/dL Ur Leukocyte Esterase (NEGATIVE) Urine RBC (0-5) Urine WBC (0-5) Ur Epithelial Cells Amorphous Sediment Urine Bacteria Urine Mucus 01/07/20 01/07/20 01/07/20 Range/Units 08:23 08:23 08:23 WBC (4.5-11.0) K/uL RBC (4.30-5.90) M/uL Hgb (12.0-15.0) g/dL Hct (40.0-54.0) % MCV (80-98) fL MCH (27-31) pg MCHC (32-36) % Plt Count (150-400) K/uL PT 12.0 (9.5-12.0) sec INR 1.10 (0.80-1.20) D-Dimer, Quantitative 453 H (0.0-400.0) ng/mL Sodium (140-148) mmol/L Potassium (3.6-5.2) mmol/L Chloride (100-108) mmol/L Carbon Dioxide (21-32) mmol/L Anion Gap (5.0-14.0) mmol/L BUN (7-18) mg/dL Creatinine (0.8-1.3) mg/dL Est Cr Clr Drug Dosing mL/min Estimated GFR (MDRD) (>60) Glucose (74-106) mg/dL Lactic Acid (0.4-2.0) mmol/L Calcium (8.5-10.1) mg/dL Total Bilirubin (0.2-1.0) mg/dL AST (15-37) U/L ALT (12-78) U/L Alkaline Phosphatase (46-116) U/L C-Reactive Protein 24.10 H (0.0-0.3) mg/dL Total Protein (6.4-8.2) g/dL Albumin (3.4-5.0) g/dL Globulin (2.3-3.5) g/dL Albumin/Globulin Ratio (1.2-2.2) PSA Screen < 0.1 (0.0-4.0) ug/L Procalcitonin ng/mL Urine Color (YELLOW) Urine Appearance (CLEAR) Urine pH (5.0-8.0) Ur Specific [place] (1.008-1.030) Urine Protein (NEGATIVE) mg/dL Urine Glucose (UA) (NEGATIVE) mg/dL Urine Ketones (NEGATIVE) mg/dL Urine Occult Blood (NEGATIVE) Urine Nitrite (NEGATIVE) Urine Bilirubin (NEGATIVE) Urine Urobilinogen (0.2-1.0) EU/dL Ur Leukocyte Esterase (NEGATIVE) Urine RBC (0-5) Urine WBC (0-5) Ur Epithelial Cells Amorphous Sediment Urine Bacteria Urine Mucus 01/07/20 01/07/20 Range/Units 08:23 10:00 WBC (4.5-11.0) K/uL RBC (4.30-5.90) M/uL Hgb (12.0-15.0) g/dL Hct (40.0-54.0) % MCV (80-98) fL MCH (27-31) pg MCHC (32-36) % Plt Count (150-400) K/uL PT (9.5-12.0) sec INR (0.80-1.20) D-Dimer, Quantitative (0.0-400.0) ng/mL Sodium (140-148) mmol/L Potassium (3.6-5.2) mmol/L Chloride (100-108) mmol/L Carbon Dioxide (21-32) mmol/L Anion Gap (5.0-14.0) mmol/L BUN (7-18) mg/dL Creatinine (0.8-1.3) mg/dL Est Cr Clr Drug Dosing mL/min Estimated GFR (MDRD) (>60) Glucose (74-106) mg/dL Lactic Acid (0.4-2.0) mmol/L Calcium (8.5-10.1) mg/dL Total Bilirubin (0.2-1.0) mg/dL AST (15-37) U/L ALT (12-78) U/L Alkaline Phosphatase (46-116) U/L C-Reactive Protein (0.0-0.3) mg/dL Total Protein (6.4-8.2) g/dL Albumin (3.4-5.0) g/dL Globulin (2.3-3.5) g/dL Albumin/Globulin Ratio (1.2-2.2) PSA Screen (0.0-4.0) ug/L Procalcitonin 9.71 H* ng/mL Urine Color Yellow (YELLOW) Urine Appearance Slightly cloudy A (CLEAR) Urine pH 6.5 (5.0-8.0) Ur Specific [place] 1.025 (1.008-1.030) Urine Protein Trace H (NEGATIVE) mg/dL Urine Glucose (UA) Negative (NEGATIVE) mg/dL Urine Ketones Negative (NEGATIVE) mg/dL Urine Occult Blood Negative (NEGATIVE) Urine Nitrite Negative (NEGATIVE) Urine Bilirubin Negative (NEGATIVE) Urine Urobilinogen 0.2 (0.2-1.0) EU/dL Ur Leukocyte Esterase Negative (NEGATIVE) Urine RBC 0-5 (0-5) Urine WBC 5-10 H (0-5) Ur Epithelial Cells Rare Amorphous Sediment Few Urine Bacteria Few Urine Mucus Moderate Result Diagrams: 01/07/20 08:23 01/07/20 08:23 Imaging Impressions Last 24 hrs: XR left knee-images personally reviewed-no evidence for fracture or hardware malalignment. S/P left TKA with stables laterally. Sepsis Event Note - Evaluation Sepsis Screening Result: No Definite Risk - Focused Exam Vital Signs: Vital Signs Temp Pulse Resp BP Pulse Ox 01/07/20 10:35 36.3 C 72 16 133/63 95 01/07/20 08:03 36.9 C 76 16 151/76 H 96 01/07/20 07:55 36.9 C 76 16 151/76 H 96 Date Exam was Performed: 01/07/20 Time Exam was Performed: 13:28 *Q Meaningful Use (ADM) - VTE *Q VTE Pharmacological Contraindications *Q: Patient Scheduled Surgery - VTE Risk Assess *Q Each Risk Factor Represents 1 Point: Obesity ( BMI > 25 kg/m2) Total Score 1 Point Risk Factors: 1 Each Risk Factor Represents 2 Points: Age 60 - 74 Years, Malignancy (present or previous) Total Score 2 Point Risk Factors: 4 Each Risk Factor Represents 3 Points: None Total Score 3 Point Risk Factors: 0 Each Risk Factor Represents 5 Points: None Total Score 5 Point Risk Factors: 0 Venous Thromboembolism Risk Factor Score *Q: 5 - Problem List (1) Septic arthritis of knee, left SNOMED Code(s): 198467120, 170282175 ICD Code: M00.9 - PYOGENIC ARTHRITIS, UNSPECIFIED Status: Acute Current Visit: Yes Qualifiers: Septic arthritis organism: due to unspecified organism Qualified Code(s): M00.9 - Pyogenic arthritis, unspecified Problem List Initiated/Reviewed/Updated: Yes Orders Last 24hrs: Active Orders 24 hr Category Date Time Status Patient Status Manage Transfer [TRANSFER] Routine ADT 01/07/20 11:18 Ordered CULTURE BLOOD [BC] Urgent Lab 01/07/20 08:23 Received CULTURE BLOOD [BC] Urgent Lab 01/07/20 10:03 Received HUMAN GRANULOCYTIC YOHANA-HGE Urgent Lab 01/07/20 08:23 Received LYME, TOTAL AB TEST/REFLEX Urgent Lab 01/07/20 08:23 Received Acetaminophen/oxyCODONE [Percocet 325-5 MG] Med 01/07/20 09:07 Active 1 tab PO ONETIME PRN Sodium Chloride 0.9% [Normal Saline] 1,000 ml Med 01/07/20 10:00 Active IV ASDIRECTED Vancomycin 1.5 gm Med 01/07/20 12:00 Active Sodium Chloride 0.9% [Normal Saline] 250 ml IV Q12H Blood Culture x2 Reflex Set [OM.PC] Urgent Oth 01/07/20 09:53 Ordered Resuscitation Status Routine Resus Stat 01/07/20 11:19 Ordered Medication Orders Sodium Chloride (Normal Saline) 1,000 mls @ 500 mls/hr IV ASDIRECTED [facility] Last Admin: 01/07/20 10:31 Dose: 500 mls/hr Documented by: PREILOR Vancomycin HCl 1.5 gm/ Sodium (Chloride) 250 mls @ 150 mls/hr IV Q12H [facility] Oxycodone/Acetaminophen (Percocet 325-5 Mg) 1 tab PO ONETIME PRN PRN Reason: Pain (moderate 4-6) Assessment/Plan Comment:: ASSESSMENT AND PLAN - Septic arthritis of the left knee-status post left total knee arthroplasty in 2018 as well as history of injury about 40 years ago that required surgical repair. Acute onset of pain, swelling and systemic symptoms. Inflammatory markers and procalcitonin are quite elevated. Cultures have been obtained and he has received ceftriaxone so far. Surgical intervention with a washout is planned later in the day. -Antibiotic coverage with ceftriaxone and vancomycin -Pain control -Consultation with Dr Steven Yoder for surgical intervention and orthopedic follow-up -Follow-up cultures -I would anticipate 4 to 6 weeks of IV antibiotics Maintenance issues - - DVT prophylaxis -mechanical until after surgery - GI prophylaxis -not indicated - Nutrition -n.p.o. until after surgery - Coats catheter -not indicated CODE STATUS -full code Admission justification -this patient will be admitted for inpatient services and is medically appropriate meeting medical necessity for inpatient admission as outlined in my documentation. I reasonably expect the patient will require inpatient services that span a period time over 2 midnights. I reasonably expect this patient to be discharged or transferred within 96 hours [facility]. Disposition -I would anticipate discharge home after the hospital stay Primary care physician - Mohit Márquez M.D. - Mortality Measure Prognosis:: Good
[2020-01-07] MEDS ORDERED: Ondansetron 4 MG/2 ML SDV IV PRN (11:45)
[2020-01-07] MEDS ORDERED: Magnesium Hydroxide 400 MG/5 ML Susp 30 ML Cup PO PRN (11:45)
[2020-01-07] MEDS ORDERED: LORazepam 2 MG/ML SDV IVPUSH PRN (11:45)
[2020-01-07] MEDS ORDERED: fentaNYL 100 MCG/2 ML SDV IVPUSH PRN (11:45)
[2020-01-07] MEDS ORDERED: Ondansetron 4 MG Tab.DIS PO PRN (11:45)
[2020-01-07] MEDS ORDERED: Ibuprofen 600 MG Tab PO PRN (11:45)
[2020-01-07] MEDS ORDERED: LORazepam 0.5 MG Tab PO PRN (11:53)
[2020-01-07] MEDS ORDERED: Midazolam 1 MG/ML 2 ML SDV ONE ×2 (11:54→14:39)
[2020-01-07] MEDS ORDERED: fentaNYL 100 MCG/2 ML SDV ONE (11:54)
[2020-01-07] MEDS ORDERED: Propofol 200 MG/20 ML SDV ONE ×2 (11:54→14:37)
[2020-01-07] MEDS ORDERED: Povidone-Iodine 10% Soln 118.25 ML Bottle ONE (12:11)
[2020-01-07] MEDS ORDERED: Lactated Ringers 1,000 ML ONE (14:46)
[2020-01-07] MEDS ORDERED: Morphine 2 MG/ML SYRINGE IVPUSH PRN (15:55)
[2020-01-07] MEDS: Ketorolac 30 MG/ML SDV IVPUSH SCH ×2 (16:56→23:58)
[2020-01-07] MEDS: Acetaminophen 325 MG Tab PO PRN ×2 (17:43→21:40)
[2020-01-07] MEDS: cefTRIAXone 1 GM in Sodium Chloride 0.9% 50 ML IV SCH (21:27)
[2020-01-07] MEDS: traMADol 50 MG Tab PO PRN (21:39)
[2020-01-07] MEDS: Lactobacillus Rhamnosus GG (Probiotic) Cap PO SCH (21:42)
[2020-01-07] MEDS: Docusate Sodium 100 MG Cap PO SCH (21:42)
[2020-01-08] MEDS: Sodium Chloride 0.9% 1,000 ML IV SCH (03:08)
[2020-01-08] MEDS: traMADol 50 MG Tab PO PRN ×5 (03:12→21:24)
[2020-01-08] MEDS: Acetaminophen 325 MG Tab PO PRN ×4 (03:12→15:45)
[2020-01-08] MEDS: Ketorolac 30 MG/ML SDV IVPUSH SCH ×4 (07:27→23:22)
[2020-01-08] MEDS ORDERED: Potassium Chloride 20 MEQ Tab.ER PO ONE (09:00)
[2020-01-08] MEDS ORDERED: Pneumococcal Polyvalent-23 Vaccine 0.5 ML SDV IM ONE (09:00)
[2020-01-08] MEDS: Docusate Sodium 100 MG Cap PO SCH ×2 (09:10→21:24)
[2020-01-08] MEDS: Lactobacillus Rhamnosus GG (Probiotic) Cap PO SCH ×2 (09:10→21:24)
[2020-01-08] MEDS: Fenofibrate,Micronized 67 MG Cap PO SCH (09:11)
[2020-01-08] MEDS: Enoxaparin 30 MG/0.3 ML Syringe SUBCUT SCH (09:11)
[2020-01-08] MEDS: Aspirin 81 MG Tab.EC PO SCH (09:11)
[2020-01-08] MEDS: amLODIPine 5 MG Tab PO SCH (09:12)
[2020-01-08] MEDS: cefTRIAXone 1 GM in Sodium Chloride 0.9% 50 ML IV SCH ×2 (09:22→21:58)
--- NOTE | 2020-01-08 12:00 | PCM.PN ---
- General Info Date of Service: 01/08/20 Subjective Update: Patient had an uneventful washout of his septic left knee yesterday. His pain is much better today. He has been up and walking around. He has not had any fevers. His white count is normal. Tolerating a diet. Cultures are still pending but no organisms were seen on the Gram stain's. Tolerating antibiotics as well as his pain medication regimen. Functional Status: Reports: Pain Controlled, Tolerating Diet - Review of Systems General: Denies: Fever - Patient Data Vitals - Most Recent: Last Vital Signs Temp 35.3 C L 01/08/20 11:00 Pulse 52 L 01/08/20 11:00 Resp 18 01/08/20 11:00 BP 105/49 L 01/08/20 11:00 Pulse Ox 98 01/08/20 11:00 Weight - Most Recent: 99.79 kg I&O - Last 24 Hours: Intake & Output 01/07/20 01/08/20 01/08/20 22:59 06:59 14:59 Intake Total 842 2553 400 Output Total 1390 470 10 Balance -548 2083 390 Lab Results Last 24 Hours: Laboratory Results - last 24 hr 01/07/20 01/08/20 01/08/20 Range/Units 12:20 05:44 05:44 WBC 10.2 (4.5-11.0) K/uL RBC 3.74 L (4.30-5.90) M/uL Hgb 11.0 L D (12.0-15.0) g/dL Hct 34.3 L (40.0-54.0) % MCV 92 (80-98) fL MCH 29 (27-31) pg MCHC 32 (32-36) % Plt Count 246 (150-400) K/uL Sodium 139 L (140-148) mmol/L Potassium 3.4 L (3.6-5.2) mmol/L Chloride 107 (100-108) mmol/L Carbon Dioxide 23 (21-32) mmol/L Anion Gap 12.4 (5.0-14.0) mmol/L BUN 15 (7-18) mg/dL Creatinine 1.3 (0.8-1.3) mg/dL Est Cr Clr Drug Dosing 55.08 mL/min Estimated GFR (MDRD) 56 L (>60) Glucose 105 (74-106) mg/dL Calcium 8.0 L (8.5-10.1) mg/dL SARS Virus RNA (PCR) Negative (NEGATIVE) Trevor Results Last 24 Hours: Microbiology 01/07/20 10:03 Aerobic Blood Culture - Preliminary Blood - Venous - Lab Draw NO GROWTH AFTER 1 DAY Anaerobic Blood Culture - Preliminary NO GROWTH AFTER 1 DAY 01/07/20 08:23 Aerobic Blood Culture - Preliminary Blood - Arm, Right NO GROWTH AFTER 1 DAY Anaerobic Blood Culture - Preliminary NO GROWTH AFTER 1 DAY 01/07/20 15:20 Gram Stain - Final Knee, Left 01/07/20 15:20 Gram Stain - Final Knee, Left Med Orders - Current: Current Medications Acetaminophen (Tylenol) 650 mg PO Q4H PRN PRN Reason: Pain (Mild 1-3)/fever Last Admin: 01/08/20 11:44 Dose: 650 mg Documented by: Amlodipine Besylate (Norvasc) 5 mg PO DAILY [facility] Last Admin: 01/08/20 09:12 Dose: 5 mg Documented by: Aspirin (Halfprin) 81 mg PO DAILY [facility] Last Admin: 01/08/20 09:11 Dose: 81 mg Documented by: Docusate Sodium (Colace) 100 mg PO BID [facility] Last Admin: 01/08/20 09:10 Dose: Not Given Documented by: Enoxaparin Sodium (Lovenox) 30 mg SUBCUT DAILY [facility] Last Admin: 01/08/20 09:11 Dose: 30 mg Documented by: Fenofibrate (Fenofibrate) 134 mg PO DAILY [facility] Last Admin: 01/08/20 09:11 Dose: 134 mg Documented by: Ceftriaxone Sodium 1 gm/ (Sodium Chloride) 50 mls @ 100 mls/hr IV Q12H [facility] Last Admin: 01/08/20 09:22 Dose: 100 mls/hr Documented by: Vancomycin HCl 1.5 gm/ Sodium (Chloride) 250 mls @ 150 mls/hr IV Q12H [facility] Last Admin: 01/08/20 00:00 Dose: 150 mls/hr Documented by: Sodium Chloride (Normal Saline) 1,000 mls @ 125 mls/hr IV ASDIRECTED [facility] Last Admin: 01/08/20 03:08 Dose: 125 mls/hr Documented by: Ketorolac Tromethamine (Toradol) 30 mg IVPUSH Q8H [facility] Stop: 01/09/20 08:01 Last Admin: 01/08/20 07:27 Dose: 30 mg Documented by: Lactobacillus Rhamnosus (Culturelle) 1 cap PO BID [facility] Last Admin: 01/08/20 09:10 Dose: 1 cap Documented by: Lorazepam (Ativan) 0.5 mg PO Q6H PRN PRN Reason: Anxiety Lorazepam (Ativan) 0.5 mg IVPUSH Q4H PRN PRN Reason: Nausea/Vomiting Magnesium Hydroxide (Milk Of Magnesia) 30 ml PO Q12H PRN PRN Reason: Constipation Morphine Sulfate (Morphine) 2 mg IVPUSH Q1H PRN PRN Reason: Breakthrough Pain Ondansetron HCl (Zofran) 4 mg IV Q6H PRN PRN Reason: Nausea/Vomiting Ondansetron HCl (Zofran Odt) 4 mg PO Q6H PRN PRN Reason: Nausea able to take PO Senna/Docusate Sodium (Senna Plus) 1 tab PO BID PRN PRN Reason: Constipation Tramadol HCl (Ultram) 50 mg PO Q4H PRN PRN Reason: Pain (moderate 4-6) Last Admin: 01/08/20 11:43 Dose: 50 mg Documented by: Discontinued Medications Fentanyl (Sublimaze) 25 mcg IVPUSH Q2H PRN PRN Reason: Pain (severe 7-10) Fentanyl (Sublimaze) Confirm Administered Dose 100 mcg .ROUTE .STK-MED ONE Stop: 01/07/20 11:55 Sodium Chloride (Normal Saline) 1,000 mls [facility] Admin: 01/07/20 10:31 Dose: 500 mls/hr Documented by: Ceftriaxone Sodium 1 gm/ (Sodium Chloride) 50 mls @ 100 mls/hr IV ONETIME ONE Stop: 01/07/20 10:23 Last Admin: 01/07/20 10:33 Dose: 100 mls/hr Documented by: Sodium Chloride (Normal Saline) 1,000 [facility]ls [facility] Lactated Ringer's (Ringers, Lactated) Confirm Administered Dose 1,000 mls @ as directed .ROUTE .STK-MED ONE Stop: 01/07/20 14:47 Ibuprofen (Motrin) 600 mg PO ONETIME ONE Stop: 01/07/20 08:15 Last Admin: 01/07/20 08:21 Dose: 600 mg Documented by: Ibuprofen (Motrin) 600 mg PO Q6H PRN PRN Reason: Pain/Fever Lidocaine HCl (Xylocaine-Mpf 1%) 5 ml INJECT ONETIME ONE Stop: 01/07/20 09:09 Last Admin: 01/07/20 09:20 Dose: 5 ml Documented by: Midazolam HCl (Versed 1 Mg/Ml) Confirm Administered Dose 2 mg .ROUTE .STK-MED ONE Stop: 01/07/20 11:55 Midazolam HCl (Versed 1 Mg/Ml) Confirm Administered Dose 2 mg .ROUTE .STK-MED ONE Stop: 01/07/20 14:40 Oxycodone/Acetaminophen (Percocet 325-5 Mg) 1 tab PO ONETIME PRN PRN Reason: Pain (moderate 4-6) Pneumococcal Polyvalent Vaccine (Pneumovax 23) 0.5 ml IM .ONCE ONE Stop: 01/08/20 09:01 Last Admin: 01/08/20 09:06 Dose: 0.5 ml Documented by: Potassium Chloride (Klor-Con M20) 40 meq PO ONETIME ONE Stop: 01/08/20 09:01 Last Admin: 01/08/20 09:18 Dose: 40 meq Documented by: Povidone Iodine (Betadine 10% Soln) Confirm Administered Dose 1 ml .ROUTE .STK- MED ONE Stop: 01/07/20 12:12 Last Admin: 01/07/20 15:04 Dose: 30 ml Documented by: Propofol (Diprivan 20 Ml) Confirm Administered Dose 200 mg .ROUTE .STK-MED ONE Stop: 01/07/20 11:55 Propofol (Diprivan 20 Ml) Confirm Administered Dose 200 mg .ROUTE .STK-MED ONE Stop: 01/07/20 14:38 - Exam Quality Assessment: No: Supplemental Oxygen General: Alert, Oriented, Cooperative, No Acute Distress Lungs: Normal Respiratory Effort GI/Abdominal Exam: Soft, No Distention Extremities: No Pedal Edema, Other (left knee wrapped in JULIOCESAR) Skin: Warm, Dry Psy/Mental Status: Alert, Normal Affect Sepsis Event Note - Evaluation Sepsis Screening Result: No Definite Risk - Focused Exam Vital Signs: Vital Signs Temp Pulse Resp BP BP Pulse Ox 01/08/20 11:00 35.3 C L 52 L 18 105/49 L 98 01/08/20 09:12 113/55 L 01/08/20 07:39 35.3 C L 66 18 113/55 L 96 01/08/20 03:44 35.7 C L 68 18 127/67 99 01/08/20 00:03 36.8 C 70 18 118/58 L 97 - Problem List & Annotations (1) Septic arthritis of knee, left SNOMED Code(s): 587713662, 841696854 Code(s): M00.9 - PYOGENIC ARTHRITIS, UNSPECIFIED Status: Acute Current Visit: Yes Qualifiers: Septic arthritis organism: due to unspecified organism Qualified Code(s): M00.9 - Pyogenic arthritis, unspecified - Problem List Review Problem List Initiated/Reviewed/Updated: Yes - My Orders Last 24 Hours: My Active Orders 01/07/20 11:19 Resuscitation Status Routine 01/07/20 11:45 Acetaminophen [Tylenol] 650 mg PO Q4H PRN Docusate Sodium/Sennosides [Senna Plus] 1 tab PO BID PRN LORazepam [Ativan] 0.5 mg IVPUSH Q4H PRN Magnesium Hydroxide [Milk of Magnesia] 30 ml PO Q12H PRN Ondansetron [Zofran ODT] 4 mg PO Q6H PRN Ondansetron [Zofran] 4 mg IV Q6H PRN traMADol [Ultram] 50 mg PO Q4H PRN 01/07/20 11:45 Patient Status [ADT] Routine Antiembolic Devices [RC] .Routine Bedrest Bedside Commode [RC] ASDIRECTED Intake and Output [RC] QSHIFT Notify Provider Consults [RC] ASDIRECTED Notify Provider Vital Signs [RC] ASDIRECTED Oxygen Therapy [RC] PRN Up With Assistance [RC] ASDIRECTED VTE/DVT Education [RC] Per Unit Routine Vital Signs [RC] Q4H Consult to Physician [CONS] Routine Antiembolic Hose [OM.PC] Routine 01/07/20 11:53 LORazepam [Ativan] 0.5 mg PO Q6H PRN 01/07/20 12:00 Vancomycin 1.5 gm Sodium Chloride 0.9% [Normal Saline] 250 ml IV Q12H 01/07/20 21:00 Lactobacillus Rhamnosus GG [Culturelle] 1 cap PO BID 01/07/20 22:00 cefTRIAXone [Rocephin] 1 gm Sodium Chloride 0.9% [Normal Saline] 50 ml IV Q12H 01/08/20 07:00 PT Evaluation and Treatment [CONS] Routine 01/08/20 09:00 Aspirin [Halfprin] 81 mg PO DAILY Fenofibrate,Micronized [Fenofibrate] 134 mg PO DAILY amLODIPine [Norvasc] 5 mg PO DAILY 01/08/20 10:14 Central Line Assessment [RC] QSHIFT Central Line PICC Insertion [Central Venous Line Insertion] [OM.PC] Routine - Plan Plan:: ASSESSMENT AND PLAN - Septic arthritis of the left knee-status post left total knee arthroplasty in 2016. Status post washout on 01/06. Cultures pending at this point. Tolerating antibiotics. Clinically doing much better today. -Antibiotic coverage with ceftriaxone and vancomycin -Pain control -Consultation with Dr Steven Yoder for surgical intervention and orthopedic follow-up -Follow-up cultures -I would anticipate 4 to 6 weeks of IV antibiotics, PICC line will be placed today Maintenance issues - - DVT prophylaxis -mechanical until after surgery - GI prophylaxis -not indicated - Nutrition -regular diet Disposition -I would anticipate discharge home with home care after the hospital stay Primary care physician - Mohit Márquez M.D.
--- NOTE | 2020-01-08 18:45 | PCM.SURGPN ---
- General Info Date of Service: 01/08/20 Date of Surgery/Procedure: 01/07/20 POD#: 1 Post-Op Diagnosis: Infection associated with orthopedic implant Functional Status: Reports: Pain Controlled, Tolerating Diet, Ambulating, Urinating - Review of Systems General: Reports: No Symptoms HEENT: Reports: No Symptoms Pulmonary: Reports: No Symptoms Cardiovascular: Reports: No Symptoms Gastrointestinal: Reports: No Symptoms Genitourinary: Reports: No Symptoms Musculoskeletal: Reports: Joint Pain, Joint Swelling Skin: Reports: No Symptoms Neurological: Reports: No Symptoms Psychiatric: Reports: No Symptoms - Patient Data Vitals - Most Recent: Last Vital Signs Temp 36.8 C 01/08/20 15:30 Pulse 67 01/08/20 15:30 Resp 16 01/08/20 15:30 BP 121/67 01/08/20 15:30 Pulse Ox 98 01/08/20 15:30 Weight - Most Recent: 99.79 kg I&O - Last 24 Hours: Intake & Output 01/08/20 01/08/20 01/08/20 06:59 14:59 22:59 Intake Total 2553 400 500 Output Total 470 10 50 Balance 2083 390 450 Lab Results Last 24 Hrs: Laboratory Results - last 24 hr 01/08/20 01/08/20 Range/Units 05:44 05:44 WBC 10.2 (4.5-11.0) K/uL RBC 3.74 L (4.30-5.90) M/uL Hgb 11.0 L D (12.0-15.0) g/dL Hct 34.3 L (40.0-54.0) % MCV 92 (80-98) fL MCH 29 (27-31) pg MCHC 32 (32-36) % Plt Count 246 (150-400) K/uL Sodium 139 L (140-148) mmol/L Potassium 3.4 L (3.6-5.2) mmol/L Chloride 107 (100-108) mmol/L Carbon Dioxide 23 (21-32) mmol/L Anion Gap 12.4 (5.0-14.0) mmol/L BUN 15 (7-18) mg/dL Creatinine 1.3 (0.8-1.3) mg/dL Est Cr Clr Drug Dosing 55.08 mL/min Estimated GFR (MDRD) 56 L (>60) Glucose 105 (74-106) mg/dL Calcium 8.0 L (8.5-10.1) mg/dL Trevor Results Last 24 Hrs: Microbiology 01/07/20 10:03 Aerobic Blood Culture - Preliminary Blood - Venous - Lab Draw NO GROWTH AFTER 1 DAY Anaerobic Blood Culture - Preliminary NO GROWTH AFTER 1 DAY 01/07/20 08:23 Aerobic Blood Culture - Preliminary Blood - Arm, Right NO GROWTH AFTER 1 DAY Anaerobic Blood Culture - Preliminary NO GROWTH AFTER 1 DAY 01/07/20 15:20 Gram Stain - Final Knee, Left 01/07/20 15:20 Gram Stain - Final Knee, Left Med Orders - Current: Current Medications Acetaminophen (Tylenol) 650 mg PO Q4H PRN PRN Reason: Pain (Mild 1-3)/fever Last Admin: 01/08/20 15:45 Dose: 650 mg Documented by: Amlodipine Besylate (Norvasc) 5 mg PO DAILY [facility] Last Admin: 01/08/20 09:12 Dose: 5 mg Documented by: Aspirin (Halfprin) 81 mg PO DAILY [facility] Last Admin: 01/08/20 09:11 Dose: 81 mg Documented by: Docusate Sodium (Colace) 100 mg PO BID [facility] Last Admin: 01/08/20 09:10 Dose: Not Given Documented by: Enoxaparin Sodium (Lovenox) 30 mg SUBCUT DAILY [facility] Last Admin: 01/08/20 09:11 Dose: 30 mg Documented by: Fenofibrate (Fenofibrate) 134 mg PO DAILY [facility] Last Admin: 01/08/20 09:11 Dose: 134 mg Documented by: Ceftriaxone Sodium 1 gm/ (Sodium Chloride) 50 mls @ 100 mls/hr IV Q12H [facility] Last Admin: 01/08/20 09:22 Dose: 100 mls/hr Documented by: Vancomycin HCl 1.5 gm/ Sodium (Chloride) 250 mls @ 150 mls/hr IV Q12H [facility] Last Admin: 01/08/20 12:28 Dose: 150 mls/hr Documented by: Sodium Chloride (Normal Saline) 1,000 mls @ 125 mls/hr IV ASDIRECTED [facility] Last Admin: 01/08/20 03:08 Dose: 125 mls/hr Documented by: Ketorolac Tromethamine (Toradol) 30 mg IVPUSH Q8H [facility] Stop: 01/09/20 08:01 Last Admin: 01/08/20 15:57 Dose: Not Given Documented by: Lactobacillus Rhamnosus (Culturelle) 1 cap PO BID [facility] Last Admin: 01/08/20 09:10 Dose: 1 cap Documented by: Lorazepam (Ativan) 0.5 mg PO Q6H PRN PRN Reason: Anxiety Lorazepam (Ativan) 0.5 mg IVPUSH Q4H PRN PRN Reason: Nausea/Vomiting Magnesium Hydroxide (Milk Of Magnesia) 30 ml PO Q12H PRN PRN Reason: Constipation Morphine Sulfate (Morphine) 2 mg IVPUSH Q1H PRN PRN Reason: Breakthrough Pain Ondansetron HCl (Zofran) 4 mg IV Q6H PRN PRN Reason: Nausea/Vomiting Ondansetron HCl (Zofran Odt) 4 mg PO Q6H PRN PRN Reason: Nausea able to take PO Senna/Docusate Sodium (Senna Plus) 1 tab PO BID PRN PRN Reason: Constipation Tramadol HCl (Ultram) 50 mg PO Q4H PRN PRN Reason: Pain (moderate 4-6) Last Admin: 01/08/20 15:45 Dose: 50 mg Documented by: Discontinued Medications Fentanyl (Sublimaze) 25 mcg IVPUSH Q2H PRN PRN Reason: Pain (severe 7-10) Fentanyl (Sublimaze) Confirm Administered Dose 100 mcg .ROUTE .STK-MED ONE Stop: 01/07/20 11:55 Sodium Chloride (Normal Saline) 1,000 mls @ 500 mls/hr IV ASDIRECTED [facility] Last Admin: 01/07/20 10:31 Dose: 500 mls/hr Documented by: Ceftriaxone Sodium 1 gm/ (Sodium Chloride) 50 mls @ 100 mls/hr IV ONETIME ONE Stop: 01/07/20 10:23 Last Admin: 01/07/20 10:33 Dose: 100 mls/hr Documented by: Sodium Chloride (Normal Saline) 1,000 mls @ 100 mls/hr IV ASDIRECTED [facility] Lactated Ringer's (Ringers, Lactated) Confirm Administered Dose 1,000 mls @ as directed .ROUTE .STK-MED ONE Stop: 01/07/20 14:47 Ibuprofen (Motrin) 600 mg PO ONETIME ONE Stop: 01/07/20 08:15 Last Admin: 01/07/20 08:21 Dose: 600 mg Documented by: Ibuprofen (Motrin) 600 mg PO Q6H PRN PRN Reason: Pain/Fever Lidocaine HCl (Xylocaine-Mpf 1%) 5 ml INJECT ONETIME ONE Stop: 01/07/20 09:09 Last Admin: 01/07/20 09:20 Dose: 5 ml Documented by: Midazolam HCl (Versed 1 Mg/Ml) Confirm Administered Dose 2 mg .ROUTE .STK-MED ONE Stop: 01/07/20 11:55 Midazolam HCl (Versed 1 Mg/Ml) Confirm Administered Dose 2 mg .ROUTE .STK-MED ONE Stop: 01/07/20 14:40 Oxycodone/Acetaminophen (Percocet 325-5 Mg) 1 tab PO ONETIME PRN PRN Reason: Pain (moderate 4-6) Pneumococcal Polyvalent Vaccine (Pneumovax 23) 0.5 ml IM .ONCE ONE Stop: 01/08/20 09:01 Last Admin: 01/08/20 09:06 Dose: 0.5 ml Documented by: Potassium Chloride (Klor-Con M20) 40 meq PO ONETIME ONE Stop: 01/08/20 09:01 Last Admin: 01/08/20 09:18 Dose: 40 meq Documented by: Povidone Iodine (Betadine 10% Soln) Confirm Administered Dose 1 ml .ROUTE .STK- MED ONE Stop: 01/07/20 12:12 Last Admin: 01/07/20 15:04 Dose: 30 ml Documented by: Propofol (Diprivan 20 Ml) Confirm Administered Dose 200 mg .ROUTE .STK-MED ONE Stop: 01/07/20 11:55 Propofol (Diprivan 20 Ml) Confirm Administered Dose 200 mg .ROUTE .STK-MED ONE Stop: 01/07/20 14:38 - Exam Wound/Incisions: Dressing Dry and Intact, No Drainage General: Alert, Oriented Extremities: Joint Swelling, Limited Range of Motion Skin: Warm, Dry Neurological: No New Focal Deficit Psy/Mental Status: Alert, Normal Affect, Normal Mood Sepsis Event Note - Evaluation Sepsis Screening Result: No Definite Risk - Focused Exam Vital Signs: Vital Signs Temp Pulse Pulse Resp BP BP Pulse Ox 01/08/20 15:30 36.8 C 67 16 121/67 98 01/08/20 11:00 35.3 C L 52 L 18 105/49 L 98 01/08/20 09:12 113/55 L 01/08/20 07:39 35.3 C L 66 18 113/55 L 96 - Problem List & Annotations (1) Infection of orthopedic implant SNOMED Code(s): 613683222 Code(s): T84.7XXA - INFECT/INFLM REACT DUE TO OTH INT ORTH PROSTH DEV/GRFT, INIT Status: Acute Current Visit: Yes Qualifiers: Encounter type: subsequent encounter Qualified Code(s): T84.7XXD - Infection and inflammatory reaction due to other internal orthopedic prosthetic devices, implants and grafts, subsequent encounter (2) Status post total left knee replacement SNOMED Code(s): 7607604516450, 4061188418592 Code(s): Z96.652 - PRESENCE OF LEFT ARTIFICIAL KNEE JOINT Status: Chronic Current Visit: Yes - Problem List Review Problem List Initiated/Reviewed/Updated: Yes - My Orders Last 24 Hours: Active Orders 24 hr Category Date Time Status Central Line Assessment [RC] QSHIFT Care 01/08/20 10:14 Active PT Evaluation and Treatment [CONS] Routine Cons 01/08/20 07:00 Active Aspirin [Halfprin] Med 01/08/20 09:00 Active 81 mg PO DAILY Docusate Sodium [Colace] Med 01/07/20 21:00 Active 100 mg PO BID Enoxaparin [Lovenox] Med 01/08/20 09:00 Active 30 mg SUBCUT DAILY Fenofibrate,Micronized [Fenofibrate] Med 01/08/20 09:00 Active 134 mg PO DAILY Lactobacillus Rhamnosus GG [Culturelle] Med 01/07/20 21:00 Active 1 cap PO BID amLODIPine [Norvasc] Med 01/08/20 09:00 Active 5 mg PO DAILY cefTRIAXone [Rocephin] 1 gm Med 01/07/20 22:00 Active Sodium Chloride 0.9% [Normal Saline] 50 ml IV Q12H Central Line PICC Insertion [Central Venous Line Oth 01/08/20 10:14 Ordered Insertion] [OM.PC] Routine Convert IV to Peripheral Lock [Convert IV to Saline Oth 01/08/20 12:17 Ordered Lock] [OM.PC] Routine Medication Orders Acetaminophen (Tylenol) 650 mg PO Q4H PRN PRN Reason: Pain (Mild 1-3)/fever Last Admin: 08/11/20 15:45 Dose: 650 mg Documented by: Admin: 01/08/20 11:44 Dose: 650 mg Documented by: Admin: 01/08/20 07:27 Dose: 650 mg Documented by: Admin: 01/08/20 03:12 Dose: 650 mg Documented by: Admin: 01/07/20 21:40 Dose: 650 mg Documented by: Admin: 01/07/20 17:43 Dose: 650 mg Documented by: MANDO Amlodipine Besylate (Norvasc) 5 mg PO DAILY [facility] Last Admin: 01/08/20 09:12 Dose: 5 mg Documented by: HITESH Aspirin (Halfprin) 81 mg PO DAILY [facility] Last Admin: 01/08/20 09:11 Dose: 81 mg Documented by: HITESH Docusate Sodium (Colace) 100 mg PO BID [facility] Last Admin: 01/08/20 09:10 Dose: Not Given Documented by: Admin: 01/07/20 21:42 Dose: 100 mg Documented by: DELIA Enoxaparin Sodium (Lovenox) 30 mg SUBCUT DAILY [facility] Last Admin: 01/08/20 09:11 Dose: 30 mg Documented by: HITESH Fenofibrate (Fenofibrate) 134 mg PO DAILY [facility] Last Admin: 01/08/20 09:11 Dose: 134 mg Documented by: HITESH Ceftriaxone Sodium 1 gm/ (Sodium Chloride) 50 mls @ 100 mls/hr IV Q12H [facility] Last Admin: 01/08/20 09:22 Dose: 100 mls/hr Documented by: Admin: 01/07/20 21:27 Dose: 100 mls/hr Documented by: DELIA Vancomycin HCl 1.5 gm/ Sodium (Chloride) 250 mls @ 150 mls/hr IV Q12H [facility] Last Admin: 01/08/20 12:28 Dose: 150 mls/hr Documented by: Admin: 01/08/20 00:00 Dose: 150 mls/hr Documented by: Admin: 01/07/20 12:48 Dose: 150 mls/hr Documented by: MANDO Sodium Chloride (Normal Saline) 1,000 mls @ 125 mls/hr IV ASDIRECTED [facility] Last Admin: 01/08/20 03:08 Dose: 125 mls/hr Documented by: DELIA Ketorolac Tromethamine (Toradol) 30 mg IVPUSH Q8H [facility] Stop: 01/09/20 08:01 Last Admin: 01/08/20 15:57 Dose: Not Given Documented by: Admin: 01/08/20 07:27 Dose: 30 mg Documented by: Admin: 01/07/20 23:58 Dose: 30 mg Documented by: Admin: 01/07/20 16:56 Dose: 30 mg Documented by: MANDO Lactobacillus Rhamnosus (Culturelle) 1 cap PO BID [facility] Last Admin: 01/08/20 09:10 Dose: 1 cap Documented by: Admin: 01/07/20 21:42 Dose: 1 cap Documented by: DELIA Lorazepam (Ativan) 0.5 mg PO Q6H PRN PRN Reason: Anxiety Lorazepam (Ativan) 0.5 mg IVPUSH Q4H PRN PRN Reason: Nausea/Vomiting Magnesium Hydroxide (Milk Of Magnesia) 30 ml PO Q12H PRN PRN Reason: Constipation Morphine Sulfate (Morphine) 2 mg IVPUSH Q1H PRN PRN Reason: Breakthrough Pain Ondansetron HCl (Zofran) 4 mg IV Q6H PRN PRN Reason: Nausea/Vomiting Ondansetron HCl (Zofran Odt) 4 mg PO Q6H PRN PRN Reason: Nausea able to take PO Senna/Docusate Sodium (Senna Plus) 1 tab PO BID PRN PRN Reason: Constipation Tramadol HCl (Ultram) 50 mg PO Q4H PRN PRN Reason: Pain (moderate 4-6) Last Admin: 01/08/20 15:45 Dose: 50 mg Documented by: Admin: 01/08/20 11:43 Dose: 50 mg Documented by: Admin: 01/08/20 07:26 Dose: 50 mg Documented by: Admin: 01/08/20 03:12 Dose: 50 mg Documented by: Admin: 01/07/20 21:39 Dose: 50 mg Documented by: DELIA - Assessment Assessment (Free Text/Narrative):: Tolerated surgery well and has been up in [place] with walker. Tolerating Tramadol and working well for pain control. Lost peripheral IV. - Plan Plan (Free Text/Narrative):: Dressing changed and drain pulled, incision looks good. Set up for PICC line. Continue IV antibiotic and set up for outpatient when culture and sensitivities are back. Follow up with Ortho approx 2 weeks after discharge.
[2020-01-09] MEDS: Acetaminophen 325 MG Tab PO PRN ×3 (02:32→23:03)
[2020-01-09] MEDS: traMADol 50 MG Tab PO PRN ×3 (02:33→23:03)
[2020-01-09] MEDS: Fenofibrate,Micronized 67 MG Cap PO SCH (08:15)
[2020-01-09] MEDS: amLODIPine 5 MG Tab PO SCH (08:15)
[2020-01-09] MEDS: Aspirin 81 MG Tab.EC PO SCH (08:15)
[2020-01-09] MEDS: Enoxaparin 30 MG/0.3 ML Syringe SUBCUT SCH (08:16)
[2020-01-09] MEDS: Ketorolac 30 MG/ML SDV IVPUSH SCH (08:16)
[2020-01-09] MEDS: Docusate Sodium 100 MG Cap PO SCH ×2 (08:16→21:30)
[2020-01-09] MEDS: Lactobacillus Rhamnosus GG (Probiotic) Cap PO SCH ×2 (08:16→21:30)
[2020-01-09] MEDS: cefTRIAXone 1 GM in Sodium Chloride 0.9% 50 ML IV SCH ×2 (10:46→21:23)
[2020-01-09 11:13] LABS: LYME IGG/IGM AB <0.91 ISR (0.00-0.90)
[2020-01-09] MEDS: Sodium Chloride 0.9% 1,000 ML IV SCH ×2 (12:23→23:00)
[2020-01-09 14:13] LABS: HGE IGG TITER Negative (Neg:<1:64); HGE IGM TITER Negative (Neg:<1:20)
--- NOTE | 2020-01-09 14:44 | PCM.PN ---
- General Info Date of Service: 01/09/20 Subjective Update: No acute events overnight. Pain is well controlled. No fevers. He has been up and cruising around well with physical therapy and on his own. Tolerating the tramadol well with no GI symptoms. Cultures from the incision and drainage surgery performed on the knee are growing gram-positive cocci but identification is pending. Tolerating current antibiotics. Functional Status: Reports: Pain Controlled - Patient Data Vitals - Most Recent: Last Vital Signs Temp 35.9 C L 01/09/20 11:00 Pulse 68 01/09/20 11:00 Resp 18 01/09/20 11:00 BP 141/70 H 01/09/20 11:00 Pulse Ox 98 01/09/20 11:00 Weight - Most Recent: 99.79 kg I&O - Last 24 Hours: Intake & Output 01/08/20 01/09/20 01/09/20 22:59 06:59 14:59 Intake Total 063 280 1927 Output Total 50 Balance 626 247 9974 Lab Results Last 24 Hours: Laboratory Results - last 24 hr 01/07/20 01/07/20 01/09/20 Range/Units 08:23 08:23 11:48 Vancomycin Trough 12.4 (10.0-20.0) ug/mL Lyme Disease IgG/IgM <0.91 (0.00-0.90) ISR HGE IgG Antibody Negative (Neg:<1:64) HGE IgM Antibody Negative (Neg:<1:20) Trevor Results Last 24 Hours: Microbiology 01/07/20 10:03 Aerobic Blood Culture - Preliminary Blood - Venous - Lab Draw NO GROWTH AFTER 2 DAYS Anaerobic Blood Culture - Preliminary NO GROWTH AFTER 2 DAYS 01/07/20 08:23 Aerobic Blood Culture - Preliminary Blood - Arm, Right NO GROWTH AFTER 2 DAYS Anaerobic Blood Culture - Preliminary NO GROWTH AFTER 2 DAYS 01/07/20 15:20 Gram Stain - Final Knee, Left Wound Culture - Preliminary Anaerobic Culture - Preliminary NO GROWTH AFTER 1 DAY 01/07/20 15:20 Gram Stain - Final Knee, Left Wound Culture - Preliminary Anaerobic Culture - Preliminary NO GROWTH AFTER 1 DAY Med Orders - Current: Current Medications Acetaminophen (Tylenol) 650 mg PO Q4H PRN PRN Reason: Pain (Mild 1-3)/fever Last Admin: 01/09/20 02:32 Dose: 650 mg Documented by: Amlodipine Besylate (Norvasc) 5 mg PO DAILY [facility] Last Admin: 01/09/20 08:15 Dose: 5 mg Documented by: Aspirin (Halfprin) 81 mg PO DAILY [facility] Last Admin: 01/09/20 08:15 Dose: 81 mg Documented by: Docusate Sodium (Colace) 100 mg PO BID [facility] Last Admin: 01/09/20 08:16 Dose: 100 mg Documented by: Enoxaparin Sodium (Lovenox) 30 mg SUBCUT DAILY [facility] Last Admin: 01/09/20 08:16 Dose: 30 mg Documented by: Fenofibrate (Fenofibrate) 134 mg PO DAILY [facility] Last Admin: 01/09/20 08:15 Dose: 134 mg Documented by: Ceftriaxone Sodium 1 gm/ (Sodium Chloride) 50 mls @ 100 mls/hr IV Q12H [facility] Last Admin: 01/09/20 10:46 Dose: 100 mls/hr Documented by: Vancomycin HCl 1.5 gm/ Sodium (Chloride) 250 mls @ 150 mls/hr IV Q12H [facility] Last Admin: 01/09/20 12:23 Dose: 150 mls/hr Documented by: Sodium Chloride (Normal Saline) 1,000 mls @ 125 mls/hr IV ASDIRECTED [facility] Last Admin: 01/09/20 12:23 Dose: 125 mls/hr Documented by: Lactobacillus Rhamnosus (Culturelle) 1 cap PO BID [facility] Last Admin: 01/09/20 08:16 Dose: 1 cap Documented by: Lorazepam (Ativan) 0.5 mg PO Q6H PRN PRN Reason: Anxiety Last Admin: 01/09/20 08:38 Dose: 0.5 mg Documented by: Lorazepam (Ativan) 0.5 mg IVPUSH Q4H PRN PRN Reason: Nausea/Vomiting Magnesium Hydroxide (Milk Of Magnesia) 30 ml PO Q12H PRN PRN Reason: Constipation Morphine Sulfate (Morphine) 2 mg IVPUSH Q1H PRN PRN Reason: Breakthrough Pain Ondansetron HCl (Zofran) 4 mg IV Q6H PRN PRN Reason: Nausea/Vomiting Ondansetron HCl (Zofran Odt) 4 mg PO Q6H PRN PRN Reason: Nausea able to take PO Senna/Docusate Sodium (Senna Plus) 1 tab PO BID PRN PRN Reason: Constipation Tramadol HCl (Ultram) 50 mg PO Q4H PRN PRN Reason: Pain (moderate 4-6) Last Admin: 01/09/20 02:33 Dose: 50 mg Documented by: Discontinued Medications Fentanyl (Sublimaze) 25 mcg IVPUSH Q2H PRN PRN Reason: Pain (severe 7-10) Fentanyl (Sublimaze) Confirm Administered Dose 100 mcg .ROUTE .STK-MED ONE Stop: 01/07/20 11:55 Sodium Chloride (Normal Saline) 1,000 mls @ 500 mls/hr IV ASDIRECTED [facility] Last Admin: 01/07/20 10:31 Dose: 500 mls/hr Documented by: Ceftriaxone Sodium 1 gm/ (Sodium Chloride) 50 mls @ 100 mls/hr IV ONETIME ONE Stop: 01/07/20 10:23 Last Admin: 01/07/20 10:33 Dose: 100 mls/hr Documented by: Sodium Chloride (Normal Saline) 1,000 mls @ 100 mls/hr IV ASDIRECTED [facility] Lactated Ringer's (Ringers, Lactated) Confirm Administered Dose 1,000 mls @ as directed .ROUTE .STK-MED ONE Stop: 01/07/20 14:47 Ibuprofen (Motrin) 600 mg PO ONETIME ONE Stop: 01/07/20 08:15 Last Admin: 01/07/20 08:21 Dose: 600 mg Documented by: Ibuprofen (Motrin) 600 mg PO Q6H PRN PRN Reason: Pain/Fever Ketorolac Tromethamine (Toradol) 30 mg IVPUSH Q8H [facility] Stop: 01/09/20 08:01 Last Admin: 01/09/20 08:16 Dose: 30 mg Documented by: Lidocaine HCl (Xylocaine-Mpf 1%) 5 ml INJECT ONETIME ONE Stop: 01/07/20 09:09 Last Admin: 01/07/20 09:20 Dose: 5 ml Documented by: Lidocaine HCl (Xylocaine-Mpf 1%) 5 ml INJECT ONETIME ONE Stop: 01/08/20 21:31 Last Admin: 01/08/20 21:58 Dose: 5 ml Documented by: Midazolam HCl (Versed 1 Mg/Ml) Confirm Administered Dose 2 mg .ROUTE .STK-MED ONE Stop: 01/07/20 11:55 Midazolam HCl (Versed 1 Mg/Ml) Confirm Administered Dose 2 mg .ROUTE .STK-MED ONE Stop: 01/07/20 14:40 Oxycodone/Acetaminophen (Percocet 325-5 Mg) 1 tab PO ONETIME PRN PRN Reason: Pain (moderate 4-6) Pneumococcal Polyvalent Vaccine (Pneumovax 23) 0.5 ml IM .ONCE ONE Stop: 01/08/20 09:01 Last Admin: 01/08/20 09:06 Dose: 0.5 ml Documented by: Potassium Chloride (Klor-Con M20) 40 meq PO ONETIME ONE Stop: 01/08/20 09:01 Last Admin: 01/08/20 09:18 Dose: 40 meq Documented by: Povidone Iodine (Betadine 10% Soln) Confirm Administered Dose 1 ml .ROUTE .STK- MED ONE Stop: 01/07/20 12:12 Last Admin: 01/07/20 15:04 Dose: 30 ml Documented by: Propofol (Diprivan 20 Ml) Confirm Administered Dose 200 mg .ROUTE .STK-MED ONE Stop: 01/07/20 11:55 Propofol (Diprivan 20 Ml) Confirm Administered Dose 200 mg .ROUTE .STK-MED ONE Stop: 01/07/20 14:38 - Exam Quality Assessment: No: Supplemental Oxygen General: Alert, Oriented, Cooperative, No Acute Distress Lungs: Normal Respiratory Effort GI/Abdominal Exam: Soft, No Distention Extremities: No Pedal Edema, Other (Left knee wrapped with Simba) Psy/Mental Status: Alert, Normal Affect Sepsis Event Note - Evaluation Sepsis Screening Result: No Definite Risk - Focused Exam Vital Signs: Vital Signs Temp Pulse Resp BP BP Pulse Ox 01/09/20 11:00 35.9 C L 68 18 141/70 H 98 01/09/20 08:15 146/74 H 01/09/20 07:00 96.4 C H 64 18 140/76 97 01/09/20 03:00 35.6 C L 70 18 128/60 97 - Problem List & Annotations (1) Septic arthritis of knee, left SNOMED Code(s): 138384319, 977117830 Code(s): M00.9 - PYOGENIC ARTHRITIS, UNSPECIFIED Status: Acute Current Visit: Yes Qualifiers: Septic arthritis organism: due to unspecified organism Qualified Code(s): M00.9 - Pyogenic arthritis, unspecified - Problem List Review Problem List Initiated/Reviewed/Updated: Yes - Plan Plan:: ASSESSMENT AND PLAN - Septic arthritis of the left knee-status post left total knee arthroplasty in 2017. Status post washout on 01/06. Cultures pending but are growing gram- positive cocci with final identification pending. Pain well controlled. Tolerating antibiotics and doing well. -Antibiotic coverage with ceftriaxone and vancomycin -Pain control -Consultation with Dr Steven Yoder for surgical intervention and orthopedic follow-up -Follow-up cultures -I would anticipate 6 weeks of IV antibiotics, PICC line placed today Maintenance issues - - DVT prophylaxis -mechanical - GI prophylaxis -not indicated - Nutrition -regular diet Disposition -I would anticipate discharge home with outpatient antibiotics after the hospital stay Primary care physician - Mohit Márquez M.D.
[2020-01-10 07:03] VITALS: BP 132/69; PULSE 64
[2020-01-10] MEDS: traMADol 50 MG Tab PO PRN (07:07)
[2020-01-10] MEDS: Acetaminophen 325 MG Tab PO PRN (07:07)
[2020-01-10] MEDS: Lactobacillus Rhamnosus GG (Probiotic) Cap PO SCH (08:09)
[2020-01-10] MEDS: amLODIPine 5 MG Tab PO SCH (08:09)
[2020-01-10] MEDS: Fenofibrate,Micronized 67 MG Cap PO SCH (08:09)
[2020-01-10] MEDS: Docusate Sodium 100 MG Cap PO SCH (08:09)
[2020-01-10] MEDS: Enoxaparin 30 MG/0.3 ML Syringe SUBCUT SCH (08:10)
[2020-01-10] MEDS: Aspirin 81 MG Tab.EC PO SCH (08:10)
[2020-01-10] MEDS: cefTRIAXone 1 GM in Sodium Chloride 0.9% 50 ML IV SCH (09:50)
--- NOTE | 2020-01-10 12:35 | PCM.DCSUM1 ---
Discharge Summary - Hospital Course Brief History: 64-year-old male with history of prostate cancer and hypertension who presented with acute left knee swelling, warmth and pain. He was admitted for management of a septic left knee. Diagnosis: Stroke: No - Discharge Data Discharge Date: 01/10/20 Discharge Disposition: Home, Self-Care 01 Condition: Good - Referral to Home Health Primary Care Physician: PCP None - Discharge Diagnosis/Problem(s) (1) Septic arthritis of knee, left SNOMED Code(s): 127238764, 633398302 ICD Code: M00.9 - PYOGENIC ARTHRITIS, UNSPECIFIED Status: Acute Qualifiers: Septic arthritis organism: due to unspecified organism Qualified Code(s): M00.9 - Pyogenic arthritis, unspecified (2) Infection of orthopedic implant SNOMED Code(s): 867670469 ICD Code: T84.7XXA - INFECT/INFLM REACT DUE TO OTH INT ORTH PROSTH DEV/GRFT, INIT Status: Acute Qualifiers: Encounter type: initial encounter Qualified Code(s): T84.7XXA - Infection and inflammatory reaction due to other internal orthopedic prosthetic devices, implants and grafts, initial encounter (3) Status post incision and drainage SNOMED Code(s): 938663475, 468392837 ICD Code: Z98.890 - OTHER SPECIFIED POSTPROCEDURAL STATES Status: Acute Problem Details: and debridement and poly exchange of left knee - Patient Summary/Data Consults: Consultations 01/07/20 11:45 Consult to Physician [CONS] Routine Consulting Provider: Steven Yoder Call Completed to Consulting Physician: Yes Reason for Consult: septic left knee 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 PT Reason for Consult: Post op Ortho Surgery Special Instructions: Ambulation, gentle ROM This query below is only for informational purposes and is not editable. Admission Diagnosis/Problem: Septic arthritis PT Evaluation and Treatment [CONS] Routine Please Evaluate and Treat. PT Reason for Consult: Post op Ortho Surgery Knee Pending Discharge: Yes, 1- 2 days Special Instructions: Schedule first outpatient PT appointment in 3-5 day post discharge. This query below is only for informational purposes and is not editable. Admission Diagnosis/Problem: Septic arthritis 01/08/20 07:00 PT Evaluation and Treatment [CONS] Routine Please Evaluate and Treat. PT Reason for Consult: Strengthening Special Instructions: post op left knee septic arthritis This query below is only for informational purposes and is not editable. Hospital Course: George presented to the emergency room with acute onset of left knee pain, swelling and warmth. Work-up in the emergency room was concerning for a septic left knee. Attempts were made at fluid aspiration from the joint but unfortunately none was able to be obtained. The infection was particularly concerning given previous total knee arthroplasty about 3 years ago. The patient was started on broad-spectrum antibiotics to cover gram-positive organisms. Cultures were obtained from the blood. He was admitted to the hospital and orthopedics were consulted. The patient was taken to the operating room later that day for incision and drainage of the presumed septic joint. Dr Steven Yoder performed the incision and drainage of the purulent infection and cultures of both fluid and tissue were sent to the lab. No organisms were seen. I continued the ceftriaxone and vancomycin over the next couple of days. The patient had a very quick improvement in his mobility and significant decrease in his pain following surgical intervention. He has been up and cruising around well with his walker. He is ambulating well enough to the point that he probably does not even need a walker by the time he is ready to go home. His vital signs have all been stable. We did successfully place a PICC line for long-term antibiotics with the plan for him to be on antibiotics through the PICC line for 6 weeks and potentially additional antibiotics after that. His cultures from the knee surgery grew out beta strep. Plan is to continue the ceftriaxone which should provide adequate strep coverage. We did discuss the possibility of antibiotics at home versus coming to the hospital and because of financial cons traints the plan is for him to be coming to the hospital daily for his antibiotic administration. He will have follow-up with orthopedics in about 2 weeks. His incision is healing well and he is stable and safe for discharged home. - Patient Instructions Diet: Regular Diet as Tolerated Activity: As Tolerated Driving: May Drive Today Showering/Bathing: May Shower, No Tub Bathing/Swimming Wound/Incision Care: Keep Operative Site/Wound Site Clean and Dry Notify Provider of: Fever, Increased Pain, Swelling and Redness, Drainage Other/Special Instructions: 1. You were in the hospital for management of an in fected left knee with underlying prosthetic knee joint. Your culture grew out a beta strep bacteria. Because there is a prosthetic joint in place you will need to be on IV antibiotics for 6 weeks. I recommend that we use ceftriaxone based on the results of the culture. This is an IV antibiotic that you will take once daily at around 8 AM. On weekdays you will receive this infusion in the [facility] of the hospital. On weekends it will be in the emergency room. We did place a PICC line so you can receive this antibiotic regularly without having to have an IV placed every day. They will provide dressing changes and any additional cares for the IV at the time of your infusion. You should follow-up with Dr Steven Yoder (orthopedic surgeon) in about 2 weeks. 2. You may take off the dressing on the left knee to shower. It is a good idea to cover the incision with gauze and secure with tape or an Simba wrap if you are going to be out and about so the wound does not get soiled with dirt or debris. You may have it open to air while you are at home resting. It is a good idea to elevate your leg for 20 to 30 minutes several times a day to help with the swelling. - Discharge Plan *PRESCRIPTION DRUG MONITORING PROGRAM REVIEWED*: Not Applicable *COPY OF PRESCRIPTION DRUG MONITORING REPORT IN PATIENT YFN: Not Applicable Prescriptions/Med Rec: cefTRIAXone Sodium [Ceftriaxone] 2 gm IJ Q24H #40 vial traMADol [Ultram] 50 mg PO Q4H PRN #20 tablet PRN Reason: Pain (Moderate 4-6) Home Medications: Home Meds Fenofibrate 160 mg PO DAILY 08/08/13 [History] Aspirin [Low Dose Aspirin EC] 81 mg PO DAILY 06/18/15 [History] LORazepam 0.5 mg PO Q6HR PRN 06/18/15 [History] Multivitamin [Multiple Vitamins] 1 tab PO DAILY 06/17/16 [History] amLODIPine [Norvasc] 5 mg PO DAILY 06/17/16 [History] Acetaminophen/Diphenhydramine [Tylenol Pm Ex-Strength Caplet] 2 each PO Q4HR 01/07/20 [History] cefTRIAXone Sodium [Ceftriaxone] 2 gm IJ Q24H #40 vial 01/10/20 [Rx] traMADol [Ultram] 50 mg PO Q4H PRN #20 tablet 01/10/20 [Rx] Oxygen Therapy Mode: Room Air Patient Handouts: Ceftriaxone injection, Septic Arthritis Referrals: Steven Yoder MD [Physician] - 01/24/20 11:15 am (2 weeks - f/u infected left knee. ) - Discharge Summary/Plan Comment DC Time >30 min.: Yes (40-outpatient antibiotics, wound care instructions) - Patient Data Vitals - Most Recent: Last Vital Signs Temp 36.3 C 01/10/20 07:01 Pulse 64 01/10/20 07:01 Resp 18 01/10/20 07:01 BP 132/69 01/10/20 08:09 Pulse Ox 97 01/10/20 07:01 Weight - Most Recent: 99.79 kg I&O - Last 24 hours: Intake & Output 01/09/20 01/10/20 01/10/20 22:59 06:59 14:59 Intake Total 436 900 Balance 436 900 Lab Results - Last 24 hrs: Laboratory Results - last 24 hr 01/07/20 Range/Units 08:23 HGE IgG Antibody Negative (Neg:<1:64) [facility] IgM Antibody Negative (Neg:<1:20) GRIS Results - Last 24 hrs: Microbiology 01/07/20 10:03 Aerobic Blood Culture - Preliminary Blood - Venous - Lab Draw NO GROWTH AFTER 3 DAYS Anaerobic Blood Culture - Preliminary NO GROWTH AFTER 3 DAYS 01/07/20 08:23 Aerobic Blood Culture - Preliminary Blood - Arm, Right NO GROWTH AFTER 3 DAYS Anaerobic Blood Culture - Preliminary NO GROWTH AFTER 3 DAYS 01/07/20 15:20 Gram Stain - Final Knee, Left Wound Culture - Final Beta Strep Not Group A Or B Anaerobic Culture - Preliminary NO GROWTH AFTER 2 DAYS 01/07/20 15:20 Gram Stain - Final Knee, Left Wound Culture - Final Beta Strep Not Group A Or B Anaerobic Culture - Preliminary NO GROWTH AFTER 2 DAYS Med Orders - Current: Current Medications Acetaminophen (Tylenol) 650 mg PO Q4H PRN PRN Reason: Pain (Mild 1-3)/fever Last Admin: 01/10/20 07:07 Dose: 650 mg Documented by: Amlodipine Besylate (Norvasc) 5 mg PO DAILY [facility] Last Admin: 01/10/20 08:09 Dose: 5 mg Documented by: Aspirin (Halfprin) 81 mg PO DAILY [facility] Last Admin: 01/10/20 08:10 Dose: 81 mg Documented by: Docusate Sodium (Colace) 100 mg PO BID [facility] Last Admin: 01/10/20 08:09 Dose: 100 mg Documented by: Enoxaparin Sodium (Lovenox) 30 mg SUBCUT DAILY [facility] Last Admin: 01/10/20 08:10 Dose: 30 mg Documented by: Fenofibrate (Fenofibrate) 134 mg PO DAILY [facility] Last Admin: 01/10/20 08:09 Dose: 134 mg Documented by: Heparin Sodium (Porcine) (Heparin Lock Flush 100 Units/Ml) 500 units FLUSH ASDIRECTED PRN PRN Reason: line maintainence Last Admin: 01/10/20 12:34 Dose: 500 units Documented by: Ceftriaxone Sodium 1 gm/ (Sodium Chloride) 50 mls @ 100 mls/hr IV Q12H [facility] Last Admin: 01/10/20 09:50 Dose: 100 mls/hr Documented by: Sodium Chloride (Normal Saline) 1,000 mls @ 125 mls/hr IV ASDIRECTED [facility] Last Admin: 01/09/20 23:00 Dose: 125 mls/hr Documented by: Vancomycin HCl 1.75 gm/ Sodium (Chloride) 250 mls @ 165 mls/hr IV Q12H [facility] Last Admin: 01/10/20 11:05 Dose: 165 mls/hr Documented by: Lactobacillus Rhamnosus (Culturelle) 1 cap PO BID [facility] Last Admin: 01/10/20 08:09 Dose: 1 cap Documented by: Lorazepam (Ativan) 0.5 mg PO Q6H PRN PRN Reason: Anxiety Last Admin: 01/09/20 08:38 Dose: 0.5 mg Documented by: Lorazepam (Ativan) 0.5 mg IVPUSH Q4H PRN PRN Reason: Nausea/Vomiting Magnesium Hydroxide (Milk Of Magnesia) 30 ml PO Q12H PRN PRN Reason: Constipation Last Admin: 01/10/20 07:08 Dose: 30 ml Documented by: Morphine Sulfate (Morphine) 2 mg IVPUSH Q1H PRN PRN Reason: Breakthrough Pain Ondansetron HCl (Zofran) 4 mg IV Q6H PRN PRN Reason: Nausea/Vomiting Ondansetron HCl (Zofran Odt) 4 mg PO Q6H PRN PRN Reason: Nausea able to take PO Senna/Docusate Sodium (Senna Plus) 1 tab PO BID PRN PRN Reason: Constipation Tramadol HCl (Ultram) 50 mg PO Q4H PRN PRN Reason: Pain (moderate 4-6) Last Admin: 01/10/20 07:07 Dose: 50 mg Documented by: Discontinued Medications Fentanyl (Sublimaze) 25 mcg IVPUSH Q2H PRN PRN Reason: Pain (severe 7-10) Fentanyl (Sublimaze) Confirm Administered Dose 100 mcg .ROUTE .STK-MED ONE Stop: 01/07/20 11:55 Sodium Chloride (Normal Saline) 1,000 mls @ 500 mls/hr IV ASDIRECTED [facility] Last Admin: 01/07/20 10:31 Dose: 500 mls/hr Documented by: Ceftriaxone Sodium 1 gm/ (Sodium Chloride) 50 mls @ 100 mls/hr IV ONETIME ONE Stop: 01/07/20 10:23 Last Admin: 01/07/20 10:33 Dose: 100 mls/hr Documented by: Sodium Chloride (Normal Saline) 1,000 mls @ 100 mls/hr IV ASDIRECTED [facility] Vancomycin HCl 1.5 gm/ Sodium (Chloride) 250 mls @ 150 mls/hr IV Q12H [facility] Last Admin: 01/09/20 12:23 Dose: 150 mls/hr Documented by: Lactated Ringer's (Ringers, Lactated) Confirm Administered Dose 1,000 mls @ as directed .ROUTE .STK-MED ONE Stop: 01/07/20 14:47 Ibuprofen (Motrin) 600 mg PO ONETIME ONE Stop: 01/07/20 08:15 Last Admin: 01/07/20 08:21 Dose: 600 mg Documented by: Ibuprofen (Motrin) 600 mg PO Q6H PRN PRN Reason: Pain/Fever Ketorolac Tromethamine (Toradol) 30 mg IVPUSH Q8H [facility] Stop: 01/09/20 08:01 Last Admin: 01/09/20 08:16 Dose: 30 mg Documented by: Lidocaine HCl (Xylocaine-Mpf 1%) 5 ml INJECT ONETIME ONE Stop: 01/07/20 09:09 Last Admin: 01/07/20 09:20 Dose: 5 ml Documented by: Lidocaine HCl (Xylocaine-Mpf 1%) 5 ml INJECT ONETIME ONE Stop: 01/08/20 21:31 Last Admin: 01/08/20 21:58 Dose: 5 ml Documented by: Midazolam HCl (Versed 1 Mg/Ml) Confirm Administered Dose 2 mg .ROUTE .STK-MED ONE Stop: 01/07/20 11:55 Midazolam HCl (Versed 1 Mg/Ml) Confirm Administered Dose 2 mg .ROUTE .STK-MED ONE Stop: 01/07/20 14:40 Oxycodone/Acetaminophen (Percocet 325-5 Mg) 1 tab PO ONETIME PRN PRN Reason: Pain (moderate 4-6) Pneumococcal Polyvalent Vaccine (Pneumovax 23) 0.5 ml IM .ONCE ONE Stop: 01/08/20 09:01 Last Admin: 01/08/20 09:06 Dose: 0.5 ml Documented by: Potassium Chloride (Klor-Con M20) 40 meq PO ONETIME ONE Stop: 01/08/20 09:01 Last Admin: 01/08/20 09:18 Dose: 40 meq Documented by: Povidone Iodine (Betadine 10% Soln) Confirm Administered Dose 1 ml .ROUTE .STK- MED ONE Stop: 01/07/20 12:12 Last Admin: 01/07/20 15:04 Dose: 30 ml Documented by: Propofol (Diprivan 20 Ml) Confirm Administered Dose 200 mg .ROUTE .STK-MED ONE Stop: 01/07/20 11:55 Propofol (Diprivan 20 Ml) Confirm Administered Dose 200 mg .ROUTE .STK-MED ONE Stop: 01/07/20 14:38 *Q Meaningful Use (DIS) - VTE *Q VTE Pharmacological Contraindications *Q: Patient Scheduled Surgery
--- NOTE | 2020-01-23 18:59 | OR ---
DATE OF PROCEDURE: 01/07/2020 SURGEON: Steven Yoder MD PREOPERATIVE DIAGNOSIS: Infected left total knee arthroplasty. POSTOPERATIVE DIAGNOSIS: Infected left total knee arthroplasty. PROCEDURE: Open irrigation and debridement, left knee, with complete synovectomy and polyethylene exchange. ANESTHESIA: General. INDICATIONS: Jamal is a 64-year-old gentleman with a 2-day history of increasing knee pain, swelling, fevers, and chills. Examination and lab reports are all consistent with infection of the left knee. He is, therefore, taken to the operating room for irrigation, debridement, synovectomy, and attempt at salvage of the prosthesis. Since this is relatively quick onset, it was thought that this was a reasonable approach. The risks, benefits, potential complications of the procedure were discussed with Jamal including the possibility of persistent or recurring infection or alternative treatment with single or two stage revision. DESCRIPTION OF PROCEDURE: After adequate anesthesia was obtained, patient was placed supine with a tourniquet about the left upper thigh. Left leg was prepped and draped in a sterile fashion. Leg was not exsanguinated, held in elevation and the tourniquet was inflated to 300 mmHg pressure. A previous incision was utilized, carried down to the subcutaneous tissues and a medial parapatellar arthrotomy was performed. This revealed a grossly purulent synovial fluid. Cultures were taken. The knee was irrigated with pulse lavage. Complete synovectomy was then performed sharply with a combination of a 10 blade and Bovie electrocautery. This included complete debridement of soft tissues around the patellar component, patellar fat pad, suprapatellar pouch, medial and lateral gutters. Once this was completed, knee was irrigated once again with pulse lavage. The knee was then flexed, and using a small osteotome, the polyethylene was removed. Knee was irrigated posteriorly. Rongeur was used to debride the synovium posteriorly. Dilute Betadine solution was then placed within the knee and let soaked for several minutes. Betadine-soaked lap sponge was used to scrub the prostheses. Wound was irrigated with pulse lavage once again followed by another round of Betadine solution and then pulse lavage. A new polyethylene was snapped into position. It was irrigated a final time, and closed after placing a drain superolaterally. The capsule was closed with 0 PDS. Skin was closed with 2-0 Vicryl and a running 3-0 Monocryl. Steri-Strips were applied. Light compressive dressing was placed. The patient tolerated the procedure very well, there were no complications, taken from the operating room in stable condition. Steven Yoder MD /[id number]
== END 2020-01-10 13:40 | disposition home or self-care (01) | DRG 486 ==
LOC: JP.ED 07:38 → JP.MS 11:18
PROVIDERS: ADMIT Internal Medicine; ATTEND Internal Medicine
PROC: 0SBD0ZZ Excision of Left Knee Joint, Open Approach (ICD-10-PCS; 2020-01-07)
PROC: 0SBD0ZZ Excision of Left Knee Joint, Open Approach (ICD-10-PCS; 2020-01-07)
PROC: 0SPD09Z Removal of Liner from Left Knee Joint, Open Approach (ICD-10-PCS; 2020-01-07)
PROC: 0SUW09Z Supplement Left Knee Joint, Tibial Surface with Liner, Open Approach (ICD-10-PCS; 2020-01-07)
PROC: 3E0234Z Introduction of Serum, Toxoid and Vaccine into Muscle, Percutaneous Approach (ICD-10-PCS; principal; 2020-01-08)
DX: T84.54XA Infection and inflammatory reaction due to internal left knee prosthesis, initial encounter (principal); M00.862 Arthritis due to other bacteria, left knee; E78.00 Pure hypercholesterolemia, unspecified; I10 Essential (primary) hypertension; K21.9 Gastro-esophageal reflux disease without esophagitis; E66.9 Obesity, unspecified; F17.200 Nicotine dependence, unspecified, uncomplicated; Z88.5 Allergy status to narcotic agent; Z91.030 Bee allergy status; Z79.82 Long term (current) use of aspirin; I25.2 Old myocardial infarction; Z85.46 Personal history of malignant neoplasm of prostate; Z23 Encounter for immunization; Z11.59 Encounter for screening for other viral diseases
CPT/HCPCS: 20610; 36415; 36569; 73560-26-LT; 73560-LT; 80048; 80053; 80202; 81001; 83605; 84145; 85027; 85379; 85610; 86140; 86618; 86666; 87040; 87070; 87075; 87077; 87205; 90732; 93010; 96365; 97110-GP; 97116-GP; 97161-GP; 97530-GP; 99285; 99285-25; A9270-GY; C1751; C1776; G0009; G0103; J0696; J1642; J1650; J1885; J2001; J2250; J2704; J3010; J3370; J7030; J7050; J7120; U0002

== ENCOUNTER 2020-08-12 05:38 | Day surgery (SDC) | payer MEDICAID ==
[2020-08-12] MEDS ORDERED: Dextrose 5%-Lactated Ringers 1,000 ML IV SCH (07:00)
[2020-08-12] MEDS ORDERED: Propofol 200 MG/20 ML SDV ONE (07:10)
[2020-08-12] MEDS ORDERED: fentaNYL 100 MCG/2 ML SDV ONE (07:10)
[2020-08-12] MEDS ORDERED: Midazolam 1 MG/ML 2 ML SDV ONE (07:10)
[2020-08-12] MEDS ORDERED: Meropenem 500 MG in Sodium Chloride 0.9% 50 ML IV ONE (07:30)
[2020-08-12 08:50] VITALS: BP 148/87; PULSE 55
--- NOTE | 2020-08-20 17:35 | OR ---
DATE OF PROCEDURE: 08/12/2020 SURGEON: Jamal Nguyen MD PREOPERATIVE DIAGNOSIS: Family history of colon carcinoma. POSTOPERATIVE DIAGNOSES: 1. Family history of colon carcinoma. 2. Normal colonoscopic examination. OPERATIVE PROCEDURE: Flexible colonoscopy. ANESTHESIA: IV sedation. INDICATION FOR PROCEDURE: A 65-year-old male presenting for a screening colonoscopy. He does have a family history of colon carcinoma consisting of this involving his mother. The plan is to proceed with colonoscopy with biopsies and/or polypectomy as indicated. Potential risks including bleeding and perforation were discussed, and the patient wishes to proceed. DETAILS OF PROCEDURE: The patient was taken to the operative room and placed in the left lateral decubitus position. IV sedation was administered, after which the initial digital rectal exam was performed. It was unremarkable. Colonoscope was then passed into the rectum with retroflexion revealing uncomplicated hemorrhoidal columns. Scope was eventually passed to the level of the cecum. The prep was quite good; only small liquid stool was present. To that level, no abnormalities were noted. Specifically, there were no diverticula or areas of colitis and no polyps or other signs of neoplasia. Scope was then withdrawn. The above findings reconfirmed and the procedure then concluded. Recommendation would be to repeat the colonoscopy in 5 years given the family history of colon carcinoma. Jamal Nguyen MD /[id number]
== END 2020-08-12 09:35 | disposition home or self-care (01) ==
LOC: JP.SDS 05:38
PROVIDERS: ATTEND Surgery
DX: Z12.11 Encounter for screening for malignant neoplasm of colon (principal); Z80.0 Family history of malignant neoplasm of digestive organs; K64.9 Unspecified hemorrhoids; E78.5 Hyperlipidemia, unspecified; I25.10 Atherosclerotic heart disease of native coronary artery without angina pectoris; K21.9 Gastro-esophageal reflux disease without esophagitis
CPT/HCPCS: J2185; J2250; J2704; J3010

== ENCOUNTER 2022-12-28 16:25 | Emergency (ER) | payer MEDICARE, BC ==
[2022-12-28] MEDS ORDERED: Pantoprazole 80 MG in Sodium Chloride 0.9% 100 ML IV ONE (17:04)
[2022-12-28] MEDS ORDERED: Sodium Chloride 0.9% 1,000 ML IV SCH (17:15)
[2022-12-28 17:21] LABS: HEMATOCRIT 41.8 % (38.4-49.7); HEMOGLOBIN 14.2 g/dL (12.9-16.9); MEAN CORPUSCULAR HEMOGLOBIN 30.1 pg (31.6-35.5); MEAN CORPUSCULAR VOLUME 88.6 fL (81.4-99.0); RED BLOOD CELL COUNT 4.72 M/uL (4.14-5.76); WHITE BLOOD CELL COUNT,WBC 5.9 K/uL (3.2-11.0)
[2022-12-28 17:38] LABS: PROTHROMBIN TIME 10.6 sec (9.2-10.6)
[2022-12-28 17:47] LABS: A/G RATIO 1.3 (1.2-2.2); ALANINE AMINOTRANSFERASE,ALT 30 U/L (12-78); ALBUMIN 4.2 g/dL (3.4-5.0); ALKALINE PHOSPHATASE 50 U/L (46-116); ANION GAP 7.1 mmol/L (5.0-14.0); ASPARTATE AMNIOTRANSFERASE,AST 27 U/L (15-37); BILIRUBIN TOTAL 0.3 mg/dL (0.2-1.0); BLOOD UREA NITROGEN,BUN 22 mg/dL (7-18); CALCIUM 9.4 mg/dL (8.5-10.1); CARBON DIOXIDE,CO2 29 mmol/L (21-32); CHLORIDE,CL 106 mmol/L (100-108); CREATININE 1.2 mg/dL (0.8-1.3); EST CRCL DRUG DOSING (CG) 57.38 mL/min; ESTIMATED GFR 67 mL/min (>60); GLUCOSE RANDOM 87 mg/dL (74-106); POTASSIUM,K 4.3 mmol/L (3.6-5.2); PRO B-TYPE NATRIUR PEPT,BNPPRO 63 pg/mL (5-125); PROTEIN TOTAL,TP 7.5 g/dL (6.4-8.2); SODIUM,NA 142 mmol/L (140-148)
[2022-12-28] MEDS ORDERED: Aspirin 81 MG Tab.Chew PO ONE (17:56)
[2022-12-28] MEDS ORDERED: Nitroglycerin 0.4 MG Tab.SL SL PRN (18:04)
[2022-12-28] MEDS ORDERED: Heparin Sodium/D5W 25,000 UNITS/500 ML BAG IV SCH (18:15)
[2022-12-28] MEDS ORDERED: Nitroglycerin/D5W 25 MG/250 ML BOTTLE IV SCH (18:30)
[2022-12-28 18:33] LABS: APPEARANCE,URINE CLEAR (CLEAR); BILIRUBIN,URINE NEGATIVE (NEGATIVE); COLOR,URINE YELLOW (YELLOW); GLUCOSE,URINE NEGATIVE (NEGATIVE); KETONES,URINE NEGATIVE (NEGATIVE); LEUKOCYTE ESTERASE,URINE NEGATIVE (NEGATIVE); NITRITE,URINE NEGATIVE (NEGATIVE); OCCULT BLOOD,URINE NEGATIVE (NEGATIVE); PH,URINE 6.5 (5.0-8.0); PROTEIN,URINE NEGATIVE (NEGATIVE); UROBILINOGEN,URINE 0.2 EU/dL (0.2-1.0)
[2022-12-28 18:41] LABS: AMORPHOUS SEDIMENT,URINE NOT SEEN; BACTERIA,URINE FEW; EPITHELIAL CELLS,URINE RARE; MUCUS,URINE RARE; RBC,URINE 0-5 (0-5); WBC,URINE 0-5 (0-5)
[2022-12-28] MEDS ORDERED: Heparin Sodium 5,000 Units/ML Vial IVPUSH ONE (18:53)
[2022-12-28 19:20] VITALS: BP 155/83; PULSE 56
== END 2022-12-28 20:30 | disposition critical access hospital (66) ==
LOC: JP.ED 16:25
DX: I21.4 Non-ST elevation (NSTEMI) myocardial infarction (principal); E86.0 Dehydration; E78.00 Pure hypercholesterolemia, unspecified; I10 Essential (primary) hypertension; I25.2 Old myocardial infarction; E66.9 Obesity, unspecified; Z68.36 Body mass index [BMI] 36.0-36.9, adult; Z91.030 Bee allergy status; Z88.5 Allergy status to narcotic agent; Z88.8 Allergy status to other drugs, medicaments and biological substances; Z79.82 Long term (current) use of aspirin; Z72.0 Tobacco use; Z79.899 Other long term (current) drug therapy
CPT/HCPCS: 36415; 71045; 80053; 80307; 81001; 83690; 83880; 84484; 85027; 85379; 85610; 93005; 96365; 96366; 96367; 96368; 99285; A9270; C9113; J1644; J3490; J7030

== ENCOUNTER 2023-11-25 09:12 | Emergency (ER) | payer MEDICARE, BC ==
[2023-11-25 09:45] LABS: BASOPHILS ABSOLUTE AUTO 0.03 K/uL (0.00-0.10); BASOPHILS PERCENT AUTO 0.6 % (0.1-1.3); EOSINOPHILS ABSOLUTE AUTO 0.14 K/uL (0.00-0.40); HEMATOCRIT 40.4 % (38.4-49.7); HEMOGLOBIN 14.1 g/dL (12.9-16.9); IMMATURE GRAN PERCENT AUTO 0.4 % (0.0-0.7); LYMPHOCYTES ABSOLUTE AUTO 1.21 K/uL (0.8-3.3); MEAN CORPUSCULAR HEMOGLOBIN 30.8 pg (31.6-35.5); MEAN CORPUSCULAR HGB CONC 34.9 g/dL (31.6-35.5); MEAN CORPUSCULAR VOLUME 88.2 fL (81.4-99.0); MONOCYTES ABSOLUTE AUTO 0.46 K/uL (0.20-0.90); MONOCYTES PERCENT AUTO 9.9 % (3.3-12.6); NEUTROPHILS PERCENT AUTO 60.1 % (40.0-78.1); PLATELET COUNT,PLT 240 K/uL (130-375); RED BLOOD CELL COUNT 4.58 M/uL (4.14-5.76); WHITE BLOOD CELL COUNT,WBC 4.7 K/uL (3.2-11.0)
[2023-11-25 09:46] LABS: IMMATURE GRAN ABSOLUTE AUTO 0.02 K/uL (0.00-0.23)
[2023-11-25 10:09] LABS: A/G RATIO 1.1 (1.2-2.2); ALANINE AMINOTRANSFERASE,ALT 29 U/L (12-78); ALBUMIN 3.7 g/dL (3.4-5.0); ALKALINE PHOSPHATASE 81 U/L (46-116); ANION GAP 13.9 mmol/L (5.0-14.0); ASPARTATE AMNIOTRANSFERASE,AST 27 U/L (15-37); BILIRUBIN TOTAL 0.3 mg/dL (0.2-1.0); BLOOD UREA NITROGEN,BUN 17 mg/dL (7-18); CALCIUM 8.6 mg/dL (8.5-10.1); CARBON DIOXIDE,CO2 25 mmol/L (21-32); CHLORIDE,CL 104 mmol/L (100-108); CREATININE 0.9 mg/dL (0.8-1.3); EST CRCL DRUG DOSING (CG) 75.48 mL/min; ESTIMATED GFR 94 mL/min (>60); GLUCOSE RANDOM 114 mg/dL (74-106); POTASSIUM,K 3.9 mmol/L (3.6-5.2); SODIUM,NA 139 mmol/L (140-148); TROPONIN I HIGH SENSITIVITY 11.6 pg/mL (<=60.3)
[2023-11-25 10:23] LABS: LYME AB IgG Negative (Negative); LYME AB IgM Negative (Negative)
[2023-11-25 10:38] VITALS: BP 136/71; PULSE 53
[2023-11-28 08:19] LABS: ANAPLASMA PHAGOCYTOPHILUM PCR Not Detected; BABESIA MICROTI BY PCR Not Detected; BABESIA SPECIES BY PCR Not Detected; EHRLICHIA CHAFFEENSIS BY PCR Not Detected; EHRLICHIA EWINGII/CANIS BY PCR Not Detected; EHRLICHIA MURIS-LIKE BY PCR Not Detected
== END 2023-11-25 10:37 | disposition home or self-care (01) ==
LOC: JP.ED 09:12
DX: R20.2 Paresthesia of skin (principal); M54.6 Pain in thoracic spine; I10 Essential (primary) hypertension; E78.00 Pure hypercholesterolemia, unspecified; E66.9 Obesity, unspecified; Z68.35 Body mass index [BMI] 35.0-35.9, adult; F17.210 Nicotine dependence, cigarettes, uncomplicated; Z79.82 Long term (current) use of aspirin; Z79.899 Other long term (current) drug therapy; Z88.8 Allergy status to other drugs, medicaments and biological substances; Z88.5 Allergy status to narcotic agent; Z91.030 Bee allergy status
CPT/HCPCS: 36415; 80053; 84484; 85025; 86618; 87468; 87469; 87484; 87798; 93005; 99284

== ENCOUNTER 2024-04-05 20:55 | Emergency (ER) | payer MEDICARE, BC ==
[2024-04-05 21:54] LABS: BASOPHILS ABSOLUTE AUTO 0.05 K/uL (0.00-0.10); BASOPHILS PERCENT AUTO 0.5 % (0.1-1.3); EOSINOPHILS ABSOLUTE AUTO 0.29 K/uL (0.00-0.40); EOSINOPHILS PERCENT AUTO 2.9 % (0.0-5.4); HEMATOCRIT 43.3 % (38.4-49.7); HEMOGLOBIN 15.3 g/dL (12.9-16.9); IMMATURE GRAN PERCENT AUTO 0.2 % (0.0-0.7); LYMPHOCYTES ABSOLUTE AUTO 1.78 K/uL (0.8-3.3); MEAN CORPUSCULAR HEMOGLOBIN 31.9 pg (31.6-35.5); MEAN CORPUSCULAR HGB CONC 35.3 g/dL (31.6-35.5); MEAN CORPUSCULAR VOLUME 90.2 fL (81.4-99.0); MONOCYTES ABSOLUTE AUTO 0.71 K/uL (0.20-0.90); MONOCYTES PERCENT AUTO 7.2 % (3.3-12.6); NEUTROPHILS ABSOLUTE AUTO 7.03 K/uL (1.0-7.6); NEUTROPHILS PERCENT AUTO 71.2 % (40.0-78.1); PLATELET COUNT,PLT 251 K/uL (130-375); WHITE BLOOD CELL COUNT,WBC 9.9 K/uL (3.2-11.0)
[2024-04-05 21:56] LABS: IMMATURE GRAN ABSOLUTE AUTO 0.02 K/uL (0.00-0.23)
[2024-04-05 22:16] LABS: A/G RATIO 1.3 (1.2-2.2); ALANINE AMINOTRANSFERASE,ALT 39 U/L (12-78); ALKALINE PHOSPHATASE 89 U/L (46-116); ANION GAP 11.9 mmol/L (5.0-14.0); ASPARTATE AMNIOTRANSFERASE,AST 33 U/L (15-37); BILIRUBIN TOTAL 0.4 mg/dL (0.2-1.0); BLOOD UREA NITROGEN,BUN 21 mg/dL (7-18); CALCIUM 8.8 mg/dL (8.5-10.1); CARBON DIOXIDE,CO2 25 mmol/L (21-32); CHLORIDE,CL 105 mmol/L (100-108); CREATININE 1.2 mg/dL (0.8-1.3); EST CRCL DRUG DOSING (CG) 55.85 mL/min; ESTIMATED GFR 66 mL/min (>60); GLUCOSE RANDOM 148 mg/dL (74-106); POTASSIUM,K 3.7 mmol/L (3.6-5.2); PROTEIN TOTAL,TP 7.1 g/dL (6.4-8.2); SODIUM,NA 142 mmol/L (140-148)
[2024-04-05 22:17] LABS: C-REACTIVE PROTEIN < 0.50 mg/dL (<0.50)
[2024-04-05 22:49] VITALS: BP 140/79; PULSE 65
== END 2024-04-05 22:45 | disposition home or self-care (01) ==
LOC: JP.ED 20:55
DX: M25.562 Pain in left knee (principal); F17.210 Nicotine dependence, cigarettes, uncomplicated; I25.10 Atherosclerotic heart disease of native coronary artery without angina pectoris; I10 Essential (primary) hypertension; I25.2 Old myocardial infarction; E78.00 Pure hypercholesterolemia, unspecified; E66.9 Obesity, unspecified; Z79.82 Long term (current) use of aspirin; Z88.5 Allergy status to narcotic agent; Z88.8 Allergy status to other drugs, medicaments and biological substances; Z91.030 Bee allergy status
CPT/HCPCS: 36415; 73562-26-LT; 73562-LT; 80053; 83605; 84145; 85025; 86140; 99283